=== PATIENT | female | born 1985 ===

== ENCOUNTER 2020-06-02 17:53 | Outpatient (REF) | payer OTHER, SELFPAY | END 2020-06-02 17:54 | disposition home or self-care (01) | LOC: HO.LAB 17:53 | PROVIDERS: Visit Provider Internal Medicine | DX: Z20.828 Contact with and (suspected) exposure to other viral communicable diseases (principal) | CPT/HCPCS: C9803; U0003 ==

== ENCOUNTER → 2020-07-15 13:57 | Outpatient (BNVA) | payer OTHER, SELFPAY | PROVIDERS: PCP Internal Medicine; Visit Provider Nurse Practitioner ==

== ENCOUNTER 2020-07-20 13:42 | Outpatient (REF) | payer OTHER, SELFPAY | END 2020-07-20 13:43 | disposition home or self-care (01) | LOC: HO.LAB 13:42 | PROVIDERS: PCP Internal Medicine; Visit Provider Internal Medicine | DX: Z20.822 Contact with and (suspected) exposure to COVID-19 (principal) | CPT/HCPCS: 36415; C9803; U0003; U0005 ==

== ENCOUNTER → 2020-08-21 13:56 | Outpatient (REF) | payer OTHER, SELFPAY ==
--- NOTE | 2020-08-21 14:15 | ECG_ITS ---
Hook-up date: 2020-08-21 14:14:00 Duration: 47:59:00 Test Indications: PALPITATIONS Medications: 20360903 QRS complexes 61 Ventricular ectopics which represent <1 % of total QRS comp. 25 Supraventricular ectopics which represent <1 % of total QRS comp. * Paced QRS complexs which represent % of total QRS comp. VENTRICULAR ECTOPY 61 Isolated 0 Bigeminal Cycles 0 Couplets 0 Runs 0 Beats in Runs * Beats LONGEST at * BPM at :: -- * Beats FASTEST at * BPM at :: -- SUPRAVENTRICULAR ECTOPY 25 Isolated 0 Couplets 0 Runs 0 Beats in Runs * Beats LONGEST at * BPM at :: -- * Beats FASTEST at * BPM at :: -- HEART RATES 41 MIN at 07:53:43 2020-08-23 71 AVG 134 MAX at 16:42:09 2020-08-21 LONGEST RR 1.6320 secs at 07:53:36 2020-08-23 S-T LEVELS Channel 1 - 128 mm at 14:14:00 2020-08-21 - 128 mm at 14:14:00 2020-08-21 Channel 2 - 128 mm at 14:14:00 2020-08-21 - 128 mm at 14:14:00 2020-08-21 Channel 3 - 128 mm at 03:33:31 -- - 128 mm at 03:33:31 Underlying rhythm is sinus; Average ventricular rate 71/min; range 41-134/min; Rare supraventricular or ventricular ectopy; No sustained arrhythmias; Patient did not report any symptoms in the diary Referred By: Michelle Cruz Overread By: SHARA REED
== END ==
LOC: HO.CARD 13:56
PROVIDERS: PCP Internal Medicine; Visit Provider Internal Medicine
DX: R00.2 Palpitations (principal)
CPT/HCPCS: 93225; 93226

== ENCOUNTER → 2020-09-09 10:05 | Outpatient (REF) | payer OTHER, SELFPAY ==
--- NOTE | 2020-09-09 10:08 | CA_ITS ---
Transthoracic Echocardiogram Patient (Last, First, Middle): Nessa Ricks, Gender: Female Date of : 1985 Age: 35 Procedure Date: 09/09/2020 Procedure Type: Transthoracic Echocardiogram Location: OP Height: 152.4 cm Weight: 68.04 kg BSA: 1.65 m2 Heart Rate: bpm BP: 110 / 62 mmHg Mushroom Sorter Grader: DEBBI Referring MD: Michelle Cruz MD Case Finisher: Matty Cronin MD Symptoms: R06.02 - Shortness of breath Study Quality: Fair ECG Rhythm: Sinus Conclusions: - 1. Normal LV systolic and diastolic function 2. Mild mitral regurgitation 3. Normal RV systolic pressure 4. No pericardial effusion Findings Left Ventricle Normal left ventricular size, thickness, and systolic function. The visually estimated ejection fraction is between 55-60%. Diastolic function is normal for age. Right Ventricle Normal right ventricular cavity size and systolic function. Atria Both atria are normal in size. There is no evidence of interatrial shunt. Aortic Valve The aortic valve structure and function is likely normal. There is no aortic valve stenosis. There is no aortic valve regurgitation. Mitral Valve There is mild anterior and posterior mitral leaflet thickening. There is mild mitral valve regurgitation. There is no mitral valve stenosis. Pulmonic Valve The pulmonic valve was not well visualized. Tricuspid Valve Likely normal tricuspid valve structure and function. There is trace tricuspid valve regurgitation. The right ventricular systolic pressure is normal. The right ventricular systolic pressure is 21 mmHg. Normal right atrial pressure. There is no evidence of pulmonary hypertension. Great Vessels All visible segments of the aorta are normal in size. The pulmonary artery was not well visualized. Venous The inferior vena cava is normal in size and collapses greater than 50% with inspiration. Pericardium/Pleural There is no evidence of pericardial effusion. Prior Study Comparison No prior study available for comparison. Measurements 2D Linear Measurements IVSd: 0.89 0.6-0.9/0.6-1.0 cm LVIDd: 3.93 3.9-5.3/4.2-5.9 cm LVIDd Index: 2.38 2.4-3.2/2.2-3.1 cm/m2 LVIDs: 2.93 2.0-3.6 cm LVPWd: 0.97 0.7-1.1 cm Ao Root: 2.20 2.1-3.5 cm LA Diam: 3.10 2.7-3.8/3.0-4.0 cm LAIDs Index: 1.88 1.5-2.3 cm/m2 LV Mass: 138.01 67-162/88-224 g LV Mass Index: 83.64 43-95/49-115 g/m2 LVOT Diam: 1.90 3.0+(-)1.3 cm 2D Systolic Function EF 4C: 54.40 >55% EF 2C: 59.70 >55% EF BiP: 55.40 >55% Mitral Valve MV VTI: 0.29 MV Pk James: 1.06 MV Mn James: 0.52 MV Pk Grad: 4.00 MV Mn Grad: 1.00 MV Pk E: 0.82 MV PK A: 0.53 MV Decel Time: 153.00 E/A: 1.50 E'Lateral: 11.90 E'Medial: 11.20 E/E' Med: 7.30 E/E' Lat: 6.80 PHT: 45.00 MVA PHT: 4.89 MVA Continuity: 2.34 Decel Alcorn: 5.32 MR VTI: 1.77 MR Alias James: 0.39 Aortic Valve AoV Pk James: 1.55 AoV Pk Grad: 10.00 LVOT LVOT Pk James: 1.06 LVOT Mn James: 0.67 LVOT VTI: 0.24 LVOT Pk Grad: 4.00 LVOT Mn Grad: 2.00 LVOT Diam: 1.90 LVOT Area: 2.84 Diastolic Function MV Pk E: 0.82 MV Pk A: 0.53 E/A: 1.50 E'Medial: 11.20 E/E' Med: 7.30 E' Laterial: 11.90 E/E' Lat: 6.80 Tricuspid Valve TR Pk James: 2.11 TR Pk Grad: 18.00 RA Press: 3.00 RVSP: 21.00 Great Vessels Aorta Ao Root-2D: 2.20 2.0-3.7 cm Ao Asc: 2.40 2.1-3.4 cm Updated in Other Vendor System with Status of Final Matty Cronin MD electronically signed on 09/09/2020 5:02:04 PM with status of Final
== END ==
LOC: HO.CARD 10:05
PROVIDERS: PCP Internal Medicine; Visit Provider Internal Medicine
DX: R06.02 Shortness of breath (principal)
CPT/HCPCS: 93306

== ENCOUNTER 2020-10-28 13:21 | Outpatient (REF) | payer OTHER, SELFPAY ==
[2020-10-28 15:54] LABS: Thyroid Stimulating Hormone 1.39 uIU/mL (0.32-4.0)
[2020-10-29 08:58] LABS: BV Int Neg Control Negative (Negative); BV Int Pos Control Positive (Positive)
[2020-10-29 08:59] LABS: CT PCR NOT DETECTED (Not Detect.); NG PCR NOT DETECTED (Not Detect.)
[2020-10-30 14:52] LABS: Prolactin 9.8 ng/mL
[2020-10-30 17:46] LABS: DHEA Sulfate 51 mcg/dL (23-266)
[2020-10-31 23:07] LABS: HPV 16 RNA NOT DETECTED (NOT DETECTED); HPV mRNA E6/E7 rflx Detected (Not Detected)
[2020-11-01 13:27] LABS: Testosterone, Free 1.2 pg/mL (0.1-6.4); Testosterone, Total 14 ng/dL (2-45)
== END 2020-10-28 13:22 | disposition home or self-care (01) ==
LOC: HO.LAB 13:21
PROVIDERS: PCP Internal Medicine; Visit Provider Advanced Practice Midwife
DX: Z01.419 Encounter for gynecological examination (general) (routine) without abnormal findings (principal); Z11.51 Encounter for screening for human papillomavirus (HPV); Z11.3 Encounter for screening for infections with a predominantly sexual mode of transmission; N89.8 Other specified noninflammatory disorders of vagina; N90.89 Other specified noninflammatory disorders of vulva and perineum; L70.9 Acne, unspecified; N92.6 Irregular menstruation, unspecified
CPT/HCPCS: 36415; 82627; 83498; 84146; 84402; 84403; 84443; 87480; 87491; 87510; 87591; 87624; 87625; 87660; 88142

== ENCOUNTER 2020-11-06 15:02 | Outpatient (REF) | payer OTHER, SELFPAY ==
--- NOTE | ~2020-11-06 | US_ITS ---
EXAMINATION:US pelvic and transvaginal CLINICAL INFORMATION: Reason for Exam N92.6 - Irregular menstruation, unspecified COMPARISON: No priors available. LMP: 11/05/2020 FINDINGS: UTERUS: The uterus is anteverted. Size: 7.1 x 2.8 x 3.8 cm. Uterine mass: There is no uterine mass. Cervix: There are nabothian cysts otherwise Grossly unremarkable. Endometrium: No ultrasound evidence of endometrial lesion. endometrial thickness measures 0.4 cm ADNEXA: Normal Right ovary: Normal in size. Left ovary: Normal in size. Doppler exam: Normal Doppler flow identified in both ovaries. FREE FLUID: Trace amount of free fluid. OTHER FINDINGS: None US/US pelvic and transvaginal IMPRESSION: Normal pelvic ultrasound.
== END 2020-11-06 15:03 | disposition home or self-care (01) ==
LOC: HO.US 15:02
PROVIDERS: Visit Provider Advanced Practice Midwife
DX: N92.6 Irregular menstruation, unspecified (principal)
CPT/HCPCS: 76830; 76856

== ENCOUNTER → 2020-11-18 11:48 | Outpatient (BNVA) | payer OTHER, SELFPAY | PROVIDERS: PCP Internal Medicine; Visit Provider Advanced Practice Midwife ==

== ENCOUNTER 2020-12-08 11:34 | Outpatient (REF) | payer OTHER, SELFPAY ==
--- NOTE | ~2020-12-08 | XR_ITS ---
EXAMINATION: XR KNEE, RIGHT CLINICAL INFORMATION: Pain right knee COMPARISON: None TECHNIQUE: Four views of the right knee. FINDINGS: Bones and soft tissues are normal. No fracture or joint effusion. Alignment is anatomic. Joint spaces are well maintained. No abnormal soft tissue calcification. XR/XR knee RT 3V IMPRESSION: Normal right knee.
[2020-12-08 11:54] LABS: MANUAL DIFF FLAG NO
[2020-12-08 12:00] LABS: Basophils Percent Auto 0.5 % (0-2); Eosinophils Absolute Auto 0.2 X10*3/uL (0.0-0.4); Eosinophils Percent Auto 2.6 % (0-4); Hematocrit 42.1 % (37-47); Hemoglobin 13.4 g/dl (12.0-16.0); Imm Gran Abs Auto 0.01 X10*3/uL (0.00-0.03); Imm Gran Pct Auto 0.2 % (0.0-0.4); Lymphocytes Absolute Auto 2.7 X10*3/uL (1.2-4.9); Mean Corpuscular HGB Conc 31.8 g/dl (31.0-35.0); Mean Corpuscular Hemoglobin 29.6 pg (27.0-33.0); Mean Corpuscular Volume 93.1 fL (80-98); Mean Platelet Volume 12.2 fL (9.4-12.3); Monocytes Absolute Auto 0.5 X10*3/uL (0.1-1.2); Monocytes Percent Auto 7.8 % (2-11); Neutrophils Absolute Auto 2.4 X10*3/uL (2.0-8.3); Neutrophils Percent Auto 41.9 % (45-73); Platelet Count 201 X10*3/uL (160-400); Red Blood Count 4.52 X10*6/uL (4.20-5.50); Red Cell Distribution Width 13.7 % (11.0-16.0); White Blood Count 5.8 X10*3/uL (4.8-10.8)
[2020-12-08 12:23] LABS: Alanine Aminotransferase 31 U/L (0-31); Albumin Level 4.2 g/dL (3.5-5.0); Alkaline Phosphatase 82 U/L (39-117); Anion Gap 11 (12-20); Aspartate Amino Transferase 26 U/L (5-31); Bilirubin Total 0.4 mg/dL (0.0-1.0); Blood Urea Nitrogen 13 mg/dL (9-16); Calcium 9.8 mg/dL (8.4-10.2); Carbon Dioxide 29 mmol/L (22-29); Chloride 106 mmol/L (96-108); Cholesterol 195 mg/dL; Estimated Glomerular Filt Rate > 60; Glucose Fasting 94 mg/dL (60-99); HDL Cholesterol 47 mg/dL; LDL Cholesterol Calculated 96 mg/dl; Potassium 4.5 mmol/L (3.3-5.1); Sodium 141 mmol/L (135-145); Total Protein 6.8 g/dL (6.5-8.0); Triglycerides 264 mg/dL
[2020-12-12 19:32] LABS: Vitamin D 25-OH, D2 <4 ng/mL; Vitamin D 25-OH, D3 38 ng/mL; Vitamin D 25-OH, Total 38 ng/mL (30-100)
== END 2020-12-08 11:35 | disposition home or self-care (01) ==
LOC: HO.XRAY 11:34
PROVIDERS: PCP Internal Medicine; Visit Provider Internal Medicine
DX: M25.561 Pain in right knee (principal); E78.5 Hyperlipidemia, unspecified; E55.9 Vitamin D deficiency, unspecified; D64.9 Anemia, unspecified
CPT/HCPCS: 36415; 73562; 80053; 80061; 82306; 85025

== ENCOUNTER → 2021-01-07 14:04 | Outpatient (BNVA) | payer OTHER, SELFPAY | PROVIDERS: Referring Provider Internal Medicine; Visit Provider Nurse Practitioner | DX: R14.0 Abdominal distension (gaseous) (principal); K21.9 Gastro-esophageal reflux disease without esophagitis | CPT/HCPCS: 99212 ==

== ENCOUNTER 2021-04-19 15:35 | Outpatient (REF) | payer OTHER, SELFPAY | END 2021-04-19 15:36 | disposition home or self-care (01) | LOC: HO.LAB 15:35 | PROVIDERS: PCP Internal Medicine; Visit Provider Internal Medicine | DX: Z20.822 Contact with and (suspected) exposure to COVID-19 (principal) | CPT/HCPCS: C9803; U0003; U0005 ==

== ENCOUNTER → 2021-07-13 13:01 | Outpatient (BNVA) | payer OTHER, SELFPAY | PROVIDERS: PCP Internal Medicine; Visit Provider Nurse Practitioner | DX: K21.9 Gastro-esophageal reflux disease without esophagitis (principal); R14.0 Abdominal distension (gaseous) | CPT/HCPCS: 99212 ==

== ENCOUNTER → 2021-10-01 12:42 | Outpatient (REF) | payer OTHER, SELFPAY ==
--- NOTE | 2021-10-01 12:44 | ECG_ITS ---
Hook-up date: 2021-10-01 11:56:00 Duration: 47:59:00 Test Indications: TACHYCARDIA Medications: [id number] QRS complexes 236 Ventricular ectopics which represent <1 % of total QRS comp. 28 Supraventricular ectopics which represent <1 % of total QRS comp. * Paced QRS complexs which represent % of total QRS comp. VENTRICULAR ECTOPY 236 Isolated 0 Bigeminal Cycles 0 Couplets 0 Runs 0 Beats in Runs * Beats LONGEST at * BPM at :: -- * Beats FASTEST at * BPM at :: -- SUPRAVENTRICULAR ECTOPY 28 Isolated 0 Couplets 0 Runs 0 Beats in Runs * Beats LONGEST at * BPM at :: -- * Beats FASTEST at * BPM at :: -- HEART RATES 45 MIN at 02:37:35 2021-10-03 79 AVG 127 MAX at 06:42:53 2021-10-03 LONGEST RR 1.4320 secs at 02:37:35 2021-10-03 S-T LEVELS Channel 1 - 128 mm at 11:56:00 2021-10-01 - 128 mm at 11:56:00 2021-10-01 Channel 2 - 128 mm at 11:56:00 2021-10-01 - 128 mm at 11:56:00 2021-10-01 Channel 3 - 128 mm at 03:11:51 -- - 128 mm at 03:11:51 Underlying rhyhm is sinus; Average ventricular rate 79/min; range 45-127/min; Rare supraventricular and ventricular ectopy; No sustained arrhythmias; Shortness of breath, chest tightness described in diary, but no significant arrhythmias to account for this. Referred By: Michelle Cruz Overread By: SHARA REED
[2021-10-01 13:09] LABS: MANUAL DIFF FLAG NO
[2021-10-01 13:22] LABS: Basophils Percent Auto 0.5 % (0-2); Eosinophils Absolute Auto 0.1 X10*3/uL (0.0-0.4); Eosinophils Percent Auto 1.4 % (0-4); Hematocrit 40.6 % (37.0-47.0); Hemoglobin 12.9 g/dl (12.0-16.0); Imm Gran Abs Auto 0.02 X10*3/uL (0.00-0.03); Imm Gran Pct Auto 0.3 % (0.0-0.4); Lymphocytes Absolute Auto 2.4 X10*3/uL (1.2-4.9); Lymphocytes Percent Auto 33.1 % (20-40); Mean Corpuscular HGB Conc 31.8 g/dl (31.0-35.0); Mean Corpuscular Hemoglobin 29.7 pg (27.0-33.0); Mean Corpuscular Volume 93.3 fL (80.0-98.0); Mean Platelet Volume 12.1 fL (9.4-12.3); Monocytes Absolute Auto 0.5 X10*3/uL (0.1-1.2); Neutrophils Absolute Auto 4.2 x10*3/uL (2.0-8.3); Neutrophils Percent Auto 57.7 % (45-73); Platelet Count 204 X10*3/uL (160-400); Red Blood Count 4.35 X10*6/uL (4.20-5.50); Red Cell Distribution Width 13.8 % (11.0-16.0); White Blood Count 7.3 X10*3/uL (4.8-10.8)
[2021-10-01 14:20] LABS: Alanine Aminotransferase 47 U/L (0-31); Albumin Level 4.1 g/dL (3.5-5.0); Alkaline Phosphatase 89 U/L (39-117); Anion Gap 13 (12-20); Aspartate Amino Transferase 35 U/L (5-31); Bilirubin Total 0.5 mg/dL (0.0-1.0); Blood Urea Nitrogen 9 mg/dL (9-16); Calcium 9.8 mg/dL (8.4-10.2); Carbon Dioxide 28 mmol/L (22-29); Chloride 105 mmol/L (96-108); Cholesterol 191 mg/dL; Estimated Glomerular Filt Rate > 60; Glucose Fasting 76 mg/dL (60-99); HDL Cholesterol 51 mg/dL; LDL Cholesterol Calculated 119 mg/dl; Potassium 3.8 mmol/L (3.3-5.1); Sodium 142 mmol/L (135-145); Total Protein 6.6 g/dL (6.5-8.0); Triglycerides 105 mg/dL
[2021-10-01 14:25] LABS: Thyroid Stimulating Hormone 1.31 uIU/mL (0.32-4.0); Vitamin D 25-OH Total 27.3 ng/mL (>30)
== END ==
LOC: HO.CARD 12:42
PROVIDERS: Visit Provider Internal Medicine
DX: R00.0 Tachycardia, unspecified (principal); E78.5 Hyperlipidemia, unspecified; R53.82 Chronic fatigue, unspecified
CPT/HCPCS: 36415; 80053; 80061; 82306; 84443; 85025; 93225; 93226

== ENCOUNTER 2021-10-07 22:30 | Observation (INO) | payer OTHER, SELFPAY ==
--- NOTE | 2021-10-07 | ECG_ITS ---
Test Reason : CHEST PAIN/PALPITATIONS Blood Pressure : / mmHG Vent. Rate : 063 BPM Atrial Rate : 063 BPM P-R Int : 160 ms QRS Dur : 126 ms QT Int : 436 ms P-R-T Axes : 054 -13 035 degrees QTc Int : 446 ms Normal sinus rhythm Non-specific intra-ventricular conduction block Minimal voltage criteria for LVH, may be normal variant ( Contreras product ) Cannot rule out Septal infarct (cited on or before 07-OCT-2021) T wave abnormality, consider anterior ischemia Abnormal ECG When compared with ECG of 30-JUL-2015 16:45, QRS duration has increased Referred By: Generic ED Physician Electronically Signed By:SHIRIN CLEMENT MD
[2021-10-07 22:42] VITALS: BP 129/76; PULSE 66; RESP 14; TEMP 36.9; O2SAT 98; BMI 28.9
[2021-10-07 22:49] LABS: MANUAL DIFF FLAG NO
[2021-10-07 22:50] LABS: Basophils Percent Auto 0.5 % (0-2); Eosinophils Absolute Auto 0.1 X10*3/uL (0.0-0.4); Hematocrit 39.5 % (37.0-47.0); Hemoglobin 12.6 g/dl (12.0-16.0); Lymphocytes Absolute Auto 2.9 X10*3/uL (1.2-4.9); Lymphocytes Percent Auto 45.2 % (20-40); Mean Corpuscular HGB Conc 31.9 g/dl (31.0-35.0); Mean Corpuscular Hemoglobin 29.4 pg (27.0-33.0); Mean Corpuscular Volume 92.3 fL (80.0-98.0); Mean Platelet Volume 12.4 fL (9.4-12.3); Monocytes Absolute Auto 0.5 X10*3/uL (0.1-1.2); Monocytes Percent Auto 8.3 % (2-11); Neutrophils Absolute Auto 2.9 x10*3/uL (2.0-8.3); Platelet Count 207 X10*3/uL (160-400); Red Blood Count 4.28 X10*6/uL (4.20-5.50); Red Cell Distribution Width 14.1 % (11.0-16.0); White Blood Count 6.5 X10*3/uL (4.8-10.8)
--- NOTE | 2021-10-07 23:01 | PC.NURSE ---
Assumed care of pt Pt c/o midsternal chest discomfort. Per pt, not really pain just uncmfortable. Started today after going home from work. Per pt, occurred again yesterday after hiking but went away. Non-radiating, non-reproducible Denies any injury to area or cough or fever Pt states was seen by PCP for same complaint and had holter monitor recently. Unknown results Will continue to monitor
[2021-10-07 23:12] LABS: Alanine Aminotransferase 43 U/L (0-31); Albumin Level 3.8 g/dL (3.5-5.0); Alkaline Phosphatase 77 U/L (39-117); Anion Gap 13 (12-20); Aspartate Amino Transferase 37 U/L (5-31); Bilirubin Total 0.3 mg/dL (0.0-1.0); Blood Urea Nitrogen 9 mg/dL (9-16); Calcium 9.4 mg/dL (8.4-10.2); Carbon Dioxide 24 mmol/L (22-29); Chloride 111 mmol/L (96-108); Creatinine Clr Calc Pharmacy 94.9; Estimated Glomerular Filt Rate > 60; Glucose Random 115 mg/dL (60-115); Potassium 3.7 mmol/L (3.3-5.1); Sodium 144 mmol/L (135-145); Total Protein 6.4 g/dL (6.5-8.0)
[2021-10-07 23:18] LABS: B Type Natriuretic Peptide 59 pg/mL (<100); Troponin-I High Sensitivity 147.2 ng/L (<3.5-17.0)
--- NOTE | 2021-10-07 23:18 | ED_ITS ---
HPI - Chest Pain General Chief Complaint: Chest Pain Stated Complaint: chest pressure,SOB Time Seen by Provider: 10/07/21 23:17 Source: patient Mode of arrival: ambulatory Limitations: no limitations History of Present Illness HPI narrative: Patient history of episodes of palpitation off and on for last 1 year had Holter monitoring and echo done on 10/01 echo was normal, Holter monitoring showed frequent PVCs without any runs of V-tach patient not seen not seen any mold repair technician yet her thyroid test was normal. Today around 05:00 o'clock patient when came home from work noticed palpitation episode which lasted about half an hour assist with shortness of breath and chest heaviness this time this palpitation was longer than in the past patient still complaining of mild dull chest pain no radiation of the pain no leg swelling or pain Related Data Previous Rx's Medication Instructions Recorded calcium carbonate 300 mg (750 mg) 300 mg PO TID #90 tab 07/13/21 chewable tablet (Tums E-X) simethicone 180 mg capsule (Gas 180 mg PO QID PRN #90 cap 07/13/21 Relief (simethicone)) Allergies Allergy/AdvReac Type Severity Reaction Status Date / Time No Known Allergies Allergy Verified 09/09/21 15:48 Review of Systems Review of Systems: Yes all other systems are reviewed and are negative [facility] Past Medical History Medical History Chronic fatigue Dyslipidemia Palpitations Physical exam Right knee pain Shortness of breath Tachycardia Surgical History History of loop electrical excision procedure (LEEP) Family History Family History Father No problems noted. Mother Kidney disease High blood pressure Sister Parkinsons disease Muscular dystrophy Maternal Grandfather Cancer Maternal Aunt Diabetes Maternal Grandmother Kidney disease Social History Social History Household Members: Family Housing: Apartment Alcohol intake: current Alcohol intake frequency: holidays/special occasions only Alcohol type: wine and hard liquor Patient Tobacco Use Status: Never used Tobacco e-Cigarette/Vaping Use: Never Used Second Hand Smoke Exposure: No Advance Directives: No Patient : No service: No Current occupational status: unemployed Gender identity: Female Cognitive needs: No Hearing needs: No Vision needs: No Physical Exam Vital Signs: Vital Signs: Last Vital Signs Temp 98.4 F 10/07/21 22:42 Pulse 66 10/08/21 02:37 Resp 13 10/08/21 02:37 BP 98/56 L 10/08/21 02:37 Pulse Ox 98 10/08/21 02:37 BMI result Body Mass Index 28.9 Appearance: Alert. Oriented X3. No acute distress. Eyes: No pallor or icterus ENT: Pharynx normal. Oral Mucosa moist Neck: Normal inspection. Neck supple. CVS: Normal heart rate and rhythm. Pulses normal. Respiratory: No respiratory distress. Equal air entry bilateral, no wh eezing/rales/rhonchi Abdomen: Soft and nontender. Bowel sounds are present, no mass palpable, no CVA tenderness Skin: Skin warm and dry. Normal skin color. Normal skin turgor. Extremities: No lower extremity edema. No calf tenderness Neuro: Oriented X 3. No motor deficit. MDM - Chest Pain MDM Narrative Medical decision making narrative: Patient with elevated troponin with episode of palpitation lasted longer than usual with chest discomfort will admit patient to rule out ACS and to be seen by mold repair technician Medical Records Data Attestation: I reviewed the patient's medical records. Lab Data Attestation: I reviewed the patient's lab results. Result diagrams: 10/07/21 22:43 10/07/21 22:43 Labs: Lab Results 10/07/21 10/07/21 10/07/21 Range/Units 22:43 22:43 22:43 WBC 6.5 (4.8-10.8) X10*3/uL RBC 4.28 (4.20-5.50) X10*6/uL Hgb 12.6 (12.0-16.0) g/dl Hct 39.5 (37.0-47.0) % MCV 92.3 (80.0-98.0) fL MCH 29.4 (27.0-33.0) pg MCHC 31.9 (31.0-35.0) g/dl RDW 14.1 (11.0-16.0) % Plt Count 207 (160-400) X10*3/uL MPV 12.4 H (9.4-12.3) fL Immature Gran % (Auto) 0.0 (0.0-0.4) % Neut % (Auto) 44.0 L (45-73) % Lymph % (Auto) 45.2 H (20-40) % Eddy % (Auto) 8.3 (2-11) % Eos % (Auto) 2.0 (0-4) % Baso % (Auto) 0.5 (0-2) % Lymph # (Auto) 2.9 (1.2-4.9) X10*3/uL [place] # (Auto) 0.5 (0.1-1.2) X10*3/uL Eos # (Auto) 0.1 (0.0-0.4) X10*3/uL Baso # (Auto) 0.0 (0.0-0.2) X10*3/uL Abs Immat Gran (auto) 0.00 (0.00-0.03) X10*3/uL Absolute Neuts (auto) 2.9 (2.0-8.3) x10*3/uL Absolute Nucleated RBC 0.000 (0.0-0.012) X10*3/uL Nucleated RBC % (auto) 0.0 (0.0-0.2) /100WBC PT (9.9-13.0) SEC INR (0.9-1.1) APTT (24.1-38.0) SEC D-Dimer High Sensitivty NG/ML Sodium 144 (135-145) mmol/L Potassium 3.7 (3.3-5.1) mmol/L Chloride 111 H (96-108) mmol/L Carbon Dioxide 24 (22-29) mmol/L Anion Gap 13 (12-20) BUN 9 (9-16) mg/dL Creatinine 0.70 (0.5-1.4) mg/dL Estim Creat Clear Calc 94.9 Estimated GFR > 60 Random Glucose 115 (60-115) mg/dL Calcium 9.4 (8.4-10.2) mg/dL Total Bilirubin 0.3 (0.0-1.0) mg/dL AST 37 H (5-31) U/L ALT 43 H (0-31) U/L Alkaline Phosphatase 77 (39-117) U/L Troponin I High Sens 147.2 H* (<3.5-17.0) ng/L B-Natriuretic Peptide 59 (<100) pg/mL Total Protein 6.4 L (6.5-8.0) g/dL Albumin 3.8 (3.5-5.0) g/dL COVID-19 (LAURYN) (Negative) COVID-19 Clin Com 10/07/21 10/07/21 10/08/21 Range/Units 23:35 23:35 00:58 WBC (4.8-10.8) X10*3/uL RBC (4.20-5.50) X10*6/uL Hgb (12.0-16.0) g/dl Hct (37.0-47.0) % MCV (80.0-98.0) fL MCH (27.0-33.0) pg MCHC (31.0-35.0) g/dl RDW (11.0-16.0) % Plt Count (160-400) X10*3/uL MPV (9.4-12.3) fL Immature Gran % (Auto) (0.0-0.4) % Neut % (Auto) (45-73) % Lymph % (Auto) (20-40) % Eddy % (Auto) (2-11) % Eos % (Auto) (0-4) % Baso % (Auto) (0-2) % Lymph # (Auto) (1.2-4.9) X10*3/uL Eddy # (Auto) (0.1-1.2) X10*3/uL Eos # (Auto) (0.0-0.4) X10*3/uL Baso # (Auto) (0.0-0.2) X10*3/uL Abs Immat Gran (auto) (0.00-0.03) X10*3/uL Absolute Neuts (auto) (2.0-8.3) x10*3/uL Absolute Nucleated RBC (0.0-0.012) X10*3/uL Nucleated RBC % (auto) (0.0-0.2) /100WBC PT 11.0 (9.9-13.0) SEC INR 1.0 (0.9-1.1) APTT 33.4 (24.1-38.0) SEC D-Dimer High Sensitivty < 150 NG/ML Sodium (135-145) mmol/L Potassium (3.3-5.1) mmol/L Chloride (96-108) mmol/L Carbon Dioxide (22-29) mmol/L Anion Gap (12-20) BUN (9-16) mg/dL Creatinine (0.5-1.4) mg/dL Estim Creat Clear Calc Estimated GFR Random Glucose (60-115) mg/dL Calcium (8.4-10.2) mg/dL Total Bilirubin (0.0-1.0) mg/dL AST (5-31) U/L ALT (0-31) U/L Alkaline Phosphatase (39-117) U/L Troponin I High Sens 126.8 H* (<3.5-17.0) ng/L B-Natriuretic Peptide (<100) pg/mL Total Protein (6.5-8.0) g/dL Albumin (3.5-5.0) g/dL COVID-19 (LAURYN) Negative (Negative) COVID-19 Clin Com See Note ECG Data ECG #1: Attestation: I personally reviewed and interpreted this ECG as follows: Interpretation: Normal sinus rhythm heart rate 63 beats per minute LVH poor progression of R- waves in anterior leads no acute ST elevation no acute ischemic Discharge Plan Discharge Clinical Impression: Heart palpitations, Non-ST elevation (NSTEMI) myocardial infarction Patient Disposition: Admitted As Inpatient
[2021-10-07 23:42] VITALS: BP 124/74; PULSE 62
[2021-10-07] MEDS: Aspirin 81 MG TAB.CHEW 162 MG PO (23:42)
[2021-10-07] MEDS: Nitroglycerin 2 % Oint 1 GM Packet 0.5 INCH TRANSDERMA (23:42)
[2021-10-07 23:54] LABS: Partial Thromboplastin Time 33.4 SEC (24.1-38.0)
--- NOTE | 2021-10-08 | CA_ITS ---
Acquisition Time: 2021-10-08 11:14:17 Total Exercise Time: 00:08:57 Test Indications: PALPITATIONS CHEST PRESSURE Medications: Protocol: EVELIA Max HR: 157 BPM 85% of Pred: 184 BPM Max BP: 120/070 mmHG Max Work Load: 7.0 METS Exercise stress test with exercise 6 min 3 sec of Evelia protocol, ( not 8 min 57 sec as listed), with mild sob, no chest discomfort, with report she can feel her heart going fast but not like her prior palpitations, without arrythma, with normotensive response to exercise, with EKG at baseline showing nonspecific IVCD then once heart rate reached about 150, there was further QRS widening, appearing to be rate related LBBB, with nondiagnostic EKGs for ischemia. In recovery the QRS width returned to baseline. Test reviewed with Dr Cronin. Referred By: Matty Cronin Overread By: EVE BURR
[2021-10-08 00:01] LABS: D Dimer High Sensitivity < 150 NG/ML
[2021-10-08 00:42] VITALS: BP 107/68; PULSE 70; RESP 15; O2SAT 98
[2021-10-08 01:22] LABS: Troponin-I High Sensitivity 126.8 ng/L (<3.5-17.0)
--- NOTE | 2021-10-08 01:34 | P.HPHOSP_ITS ---
History of Present Illness Date of Service: 10/08/21 Chief Complaint: Palpitations, chest pressure This is a 36-year-old female with past medical history of chronic fatigue, dyslipidemia, history of palpitations and tachycardia who into the hospital with complaints of chest pressure as well as palpitations. Patient reports that for the past 1 year she has had intermittent palpitations, she had workup that inclu ded loop recorder, echocardiogram, and TSH which were all negative but showed PVCs. she reports that today she developed significant palpitations and swell as chest discomfort that felt like pressure in the midsternal region nonradiating, this lasted about 30 minutes, occurred at rest, and spontaneously resolved. She reports feeling short of breath during this episode. She denies any dizziness, no headache, no change in vision, no abdominal pain nausea or vomiting, no diarrhea constipation, no urinary symptoms and no lower extremity edema. On arrival to the ED patient hemodynamically stable with no significant abnormal vital, she was given a nitro paste which helped with her chest pressure CBC unremarkable, BMP shows no significant abnormality, troponin initially was found to be 147, decreased to 126 on repeat, EKG shows T-wave inversions in V1, V2, present on EKG from 2016 Holter report from September 2021 showed underlying rhythm is sinus, rare supraventricular and ventricular ectopy, no sustained arrhythmias Patient will be admitted for observation and cardiology evaluation Review of Systems Review of Systems: Yes all other systems are reviewed and are negative [facility] Medical History Chronic fatigue Dyslipidemia Palpitations Physical exam Right knee pain Shortness of breath Tachycardia Family History Father No problems noted. Mother Kidney disease High blood pressure Sister Parkinsons disease Muscular dystrophy Maternal Grandfather Cancer Maternal Aunt Diabetes Maternal Grandmother Kidney disease Surgical History History of loop electrical excision procedure (LEEP) Social History Household Members: Family Housing: Apartment Alcohol intake: current Alcohol intake frequency: holidays/special occasions only Alcohol type: wine and hard liquor Patient Tobacco Use Status: Never used Tobacco e-Cigarette/Vaping Use: Never Used Second Hand Smoke Exposure: No Advance Directives: No Patient : No service: No Current occupational status: unemployed Gender identity: Female Cognitive needs: No Hearing needs: No Vision needs: No Meds Allergies Allergy/AdvReac Type Severity Reaction Status Date / Time No Known Allergies Allergy Verified 09/09/21 15:48 Physical Exam Vital Signs and Narrative: Vital Signs: Last Vital Signs Temp 98.4 F 10/07/21 22:42 Pulse 70 10/08/21 00:42 Resp 15 10/08/21 00:42 BP 107/68 10/08/21 00:42 Pulse Ox 98 10/08/21 00:42 BMI result Body Mass Index 28.9 Const: Other: Appears anxious General: cooperative and no acute distress Orientation/consciousness: patient oriented x3 Eyes: General: appearance normal, both eyes and all related structures Pupils: Equal, round and reactive pupils present Resp: Effort & Inspection: normal respiratory effort Auscultation: clear to auscultation bilaterally Cardio: Rate: regular rate Rhythm: regular rhythm GI: Palpation (GI): Soft to palpation Auscultation: normal bowel sounds Skin: General skin exam: no rashes or lesions noted Neuro: General: patient oriented x3 Cranial nerves: Yes Equal, round and reactive pupils present Cognition (Neuro): normal cognition Extrem: General: Yes normal to inspection and Yes no pedal edema Results Labs CBC and Chem 7: 10/07/21 22:43 10/07/21 22:43 Labs: Laboratory Results - last 24 hr 10/07/21 10/07/21 10/07/21 22:43 22:43 22:43 MCV 92.3 MCH 29.4 MCHC 31.9 RDW 14.1 Plt Count 207 MPV 12.4 H Immature Gran % (Auto) 0.0 Neut % (Auto) 44.0 L Lymph % (Auto) 45.2 H [place] % (Auto) 8.3 Eos % (Auto) 2.0 Baso % (Auto) 0.5 Lymph # (Auto) 2.9 [place] # (Auto) 0.5 Eos # (Auto) 0.1 Baso # (Auto) 0.0 Abs Immat Gran (auto) 0.00 Absolute Neuts (auto) 2.9 Absolute Nucleated RBC 0.000 Nucleated RBC % (auto) 0.0 PT INR APTT D-Dimer High Sensitivty Anion Gap 13 Estim Creat Clear Calc 94.9 Estimated GFR > 60 Random Glucose 115 Calcium 9.4 Total Bilirubin 0.3 AST 37 H ALT 43 H Alkaline Phosphatase 77 Troponin I High Sens 147.2 H* B-Natriuretic Peptide 59 Total Protein 6.4 L Albumin 3.8 10/07/21 10/08/21 23:35 00:58 MCV MCH MCHC RDW Plt Count MPV Immature Gran % (Auto) Neut % (Auto) Lymph % (Auto) [place] % (Auto) Eos % (Auto) Baso % (Auto) Lymph # (Auto) [place] # (Auto) Eos # (Auto) Baso # (Auto) Abs Immat Gran (auto) Absolute Neuts (auto) Absolute Nucleated RBC Nucleated RBC % (auto) PT 11.0 INR 1.0 APTT 33.4 D-Dimer High Sensitivty < 150 Anion Gap Estim Creat Clear Calc Estimated GFR Random Glucose Calcium Total Bilirubin AST ALT Alkaline Phosphatase Troponin I High Sens 126.8 H* B-Natriuretic Peptide Total Protein Albumin Assessment and Plan (1) Heart palpitations: Status: Acute (2) Elevated troponin: Status: Acute Plan 36-year-old female with past medical history as mentioned including palpitations, GERD, as well as hyperlipidemia who presents to the hospital with complaints of palpitations as well as chest pressure found to have elevated troponin # elevated troponin - likely secondary to tachycardia/palpitations - EKGs shows T-wave inversions in V1 and V2 but these were present and EKG of 2016 - her recent workup that includes echo were normal - will consult Cardiology given the significant troponin elevation as well as symptoms # palpitations - patient had a recent 48 hour Holter monitor that showed PVCs with no other arrhythmias - TSH has been normal in the past - Cardiology for further recommendation DVT prophylaxis: Early ambulation Quality Stroke Does the patient have a stroke diagnosis?: No VTE Prior VTE?: No VTE Risk Level:: Medical - moderate - high VTE Device Contraindication: Treatment Not Indicated VTE Drug Contraindication: Treatment Not Indicated
[2021-10-08 01:47] LABS: COVID-19 Test Negative (Negative); IDNOW Serial# 55D5AD1C
[2021-10-08 02:37] VITALS: BP 98/56; PULSE 66; RESP 13; O2SAT 98
--- NOTE | 2021-10-08 04:01 | PC.NURSE ---
Pt resting on stretcher with eyes closed Breathing even and unlabored NAD Will continue to monitor
[2021-10-08 06:09] VITALS: BP 97/55; PULSE 77; RESP 18; O2SAT 98
[2021-10-08 06:20] LABS: MANUAL DIFF FLAG NO
[2021-10-08 06:26] LABS: Basophils Percent Auto 0.6 % (0-2); Eosinophils Absolute Auto 0.1 X10*3/uL (0.0-0.4); Eosinophils Percent Auto 2.5 % (0-4); Hematocrit 39.9 % (37.0-47.0); Hemoglobin 12.5 g/dl (12.0-16.0); Imm Gran Abs Auto 0.01 X10*3/uL (0.00-0.03); Imm Gran Pct Auto 0.2 % (0.0-0.4); Lymphocytes Absolute Auto 2.8 X10*3/uL (1.2-4.9); Lymphocytes Percent Auto 53.3 % (20-40); Mean Corpuscular HGB Conc 31.3 g/dl (31.0-35.0); Mean Corpuscular Hemoglobin 29.4 pg (27.0-33.0); Mean Corpuscular Volume 93.9 fL (80.0-98.0); Mean Platelet Volume 12.6 fL (9.4-12.3); Monocytes Absolute Auto 0.4 X10*3/uL (0.1-1.2); Monocytes Percent Auto 8.3 % (2-11); Neutrophils Absolute Auto 1.8 x10*3/uL (2.0-8.3); Neutrophils Percent Auto 35.1 % (45-73); Platelet Count 184 X10*3/uL (160-400); Red Blood Count 4.25 X10*6/uL (4.20-5.50); White Blood Count 5.2 X10*3/uL (4.8-10.8)
[2021-10-08 06:36] LABS: Anion Gap 12 (12-20); Blood Urea Nitrogen 8 mg/dL (9-16); Calcium 9.1 mg/dL (8.4-10.2); Carbon Dioxide 23 mmol/L (22-29); Chloride 113 mmol/L (96-108); Creatinine Clr Calc Pharmacy 99.2; Estimated Glomerular Filt Rate > 60; Glucose Random 93 mg/dL (60-115); Potassium 3.8 mmol/L (3.3-5.1); Sodium 144 mmol/L (135-145)
[2021-10-08 07:31] VITALS: BP 106/64; PULSE 66; RESP 15; TEMP 36.4; O2SAT 99
--- NOTE | 2021-10-08 07:53 | PHA.MEDREC ---
Pharmacy Consult ? Medication Reconciliation Pharmacy has completed the medication reconciliation. Spoke with patient in the ED.
--- NOTE | 2021-10-08 08:32 | CA_ITS ---
Transthoracic Echocardiogram Patient (Last, First, Middle): Nessa Ricks, Gender: Female Date of : 1985 Age: 36 Procedure Date: 10/08/2021 Procedure Type: Transthoracic Echocardiogram Location: ER Height: 152.4 cm Weight: 67.13 kg BSA: 1.64 m2 Heart Rate: bpm BP: 120 / 67 mmHg Adobe Layer Helper: Referring MD: Matty Cronin MD Symptoms: Elevated troponins, to evaluate RWMA Study Quality: Adequate ECG Rhythm: Sinus Conclusions: - Normal LV systolic function without significant regional wall motion abnormality Findings Left Ventricle Normal left ventricular size, thickness, and systolic function. The visually estimated ejection fraction is between 55-60%. Spectral Doppler is indicative of a normal filling pattern. Peak GLS is -20.3%, within normal limits Pericardium/Pleural There is no evidence of pericardial effusion. Measurements 2D Linear Measurements IVSd: 0.99 0.6-0.9/0.6-1.0 cm LVIDd: 3.91 3.9-5.3/4.2-5.9 cm LVIDd Index: 2.38 2.4-3.2/2.2-3.1 cm/m2 LVIDs: 2.76 2.0-3.6 cm LVPWd: 0.88 0.7-1.1 cm LV Mass: 139.07 67-162/88-224 g LV Mass Index: 84.80 43-95/49-115 g/m2 2D Systolic Function EF 4C: 49.60 >55% EF 2C: 59.60 >55% EF BiP: 55.30 >55% Updated in Other Vendor System with Status of Final Matty Cronin MD electronically signed on 10/08/2021 12:46:37 PM with status of Final
[2021-10-08 09:39] VITALS: BP 120/65; PULSE 63; RESP 18; TEMP 37; O2SAT 96
--- NOTE | 2021-10-08 09:55 | P.CONCA_ITS ---
History of Present Illness History of Present Illness Date of Service: 10/08/21 Requesting physician: Emeka Spence Consult reason: chest pain and other (Palpitations) Chief complaint: ACS r/o Narrative: I was consulted to see Nessa in cardiology consultation today. She is a pleasant young woman who present to the hospital yesterday with rapid heart rate. She says she was feeling fine yesterday when she came back from work and was relaxing when she suddenly started noticing rapid heart rate. This was immediately associated shortness of breath and chest pressure. She felt quite distressed yesterday and the palpitation went on for about 30 minutes. She then eventually decided to come to the emergency room because the symptoms are not abating. She was driven to the emergency room. She tried to take her own carotid pulse and thinks that was very rapid and regular and had skipped heartbeats. However this is unclear. At time she came to the emergency room a palpitation with subside but she continued to have pressure in her chest. The 1st EKG shows sinus rhythm with IVCD. Her troponins were elevated and subsequently down trended. She was admitted for observation because of elevated troponins and chest pain. She had workup for these symptoms of palpitations last year with Holter monitor showing rare ectopy. She had echocardiogram showed normal cardiac structure and function. She says she has had these palpitations for many years but usually short lasting and is associated with shortness of breath but never chest pressure. In the past she has been labeled as having panic attacks. She is very emotional about this. He has no major other cardiovascular risk factors. Review of Systems Constitutional: Constitutional: Reports no additional constitutional complaints Eyes: Eyes: Reports no additional eye complaints Cardiovascular: Cardiovascular: Reports chest pain, Reports palpitations and Reports dyspnea Respiratory: Respiratory: Reports no additional respiratory complaints and Reports dyspnea Gastrointestinal: Gastrointestinal: Reports no additional gastrointestinal complaints Genitourinary: Genitourinary: Reports no additional female genitourinary complaints Musculoskeletal: Musculoskeletal: Reports no additional musculoskeletal complaints Integumentary/Breasts: Skin/Breast: Reports system reviewed and no additional complaints, except as docu Neurologic: Reports system reviewed and no additional complaints, except as documented Psychiatric: Psychiatric: Reports no additional psychiatric complaints Endocrine: Endocrine: Reports no additional endocrine complaints and Reports palpitations Hematologic/Lymphatic: Hematologic/Lymphatic: Reports no additional hematologic/lymphatic complaints Allergic/Immunologic: Allergic/Immunologic: Reports no additional allergi c/immunologic complaints [facility] Past Medical History Medical History Chronic fatigue Dyslipidemia Palpitations Physical exam Right knee pain Shortness of breath Tachycardia Family History Family History Father No problems noted. Mother Kidney disease High blood pressure Sister Parkinsons disease Muscular dystrophy Maternal Grandfather Cancer Maternal Aunt Diabetes Maternal Grandmother Kidney disease Surgical History Surgical History History of loop electrical excision procedure (LEEP) Social History Social History Household Members: Family Housing: Apartment Alcohol intake: current Alcohol intake frequency: holidays/special occasions only Alcohol type: wine and hard liquor Patient Tobacco Use Status: Never used Tobacco e-Cigarette/Vaping Use: Never Used Second Hand Smoke Exposure: No Advance Directives: No Patient : No service: No Current occupational status: unemployed Gender identity: Female Cognitive needs: No Hearing needs: No Vision needs: No Meds Allergies Allergy/AdvReac Type Severity Reaction Status Date / Time No Known Allergies Allergy Verified 09/09/21 15:48 Active Medications: Current Medications Acetaminophen (Acetaminophen 325 Mg Tablet) 650 mg PO Q6H PRN PRN Reason: Pain, Mild (Pain Scale 1-3) Ondansetron HCl (Ondansetron Hcl 4 Mg/2 Ml Vial) 4 mg IVPUSH Q8H PRN PRN Reason: Nausea and Vomiting Sodium Chloride (0.9 % Sodium Chloride Flush 3 Ml Syringe) 3 ml IVFLUSH [facility] Last Admin: 10/08/21 09:29 Dose: Not Given Documented by: Home Medications Medication Instructions Recorded Confirmed Last Taken Type apple cider vinegar 300 mg tablet 300 mg PO DAILY 10/08/21 10/08/21 10/07/21 History calcium carbonate 300 mg (750 mg) 300 mg PO TID PRN 10/08/21 10/08/21 Unknown History chewable tablet (Tums E-X) multivitamin 1 tab PO DAILY 10/08/21 10/08/21 10/07/21 History simethicone 180 mg capsule (Gas 180 mg PO QID PRN 10/08/21 10/08/21 Unknown History Relief (simethicone)) Physical Exam Vital Signs: Vital Signs: Last Vital Signs Temp 98.6 F 10/08/21 09:39 Pulse 63 10/08/21 09:39 Resp 18 10/08/21 09:39 BP 120/65 10/08/21 09:39 Pulse Ox 96 10/08/21 09:39 BMI result Body Mass Index 28.9 Const: General: cooperative, comfortable, no acute distress, alert, awake and anxious Nutritional Appearance: average body habitus Orientation/consciousness: patient oriented x3 Limitations: no limitations HEENT: Head: Yes normocephalic and Yes atraumatic Neck: Neck: Yes trachea midline, Yes supple and Yes no JVD Resp: Effort & Inspection: normal respiratory effort Auscultation: clear to auscultation bilaterally Cardio: Jugular venous distension: no JVD Palpation: normal PMI Rate: regular rate Rhythm: regular rhythm Heart sounds: S1 normal heart sound present, S2 normal heart sound present, no click, no gallops and no murmurs GI: Auscultation: normal bowel sounds Skin: General skin exam: no rashes or lesions noted Neuro: General: patient oriented x3 and no focal motor deficits Extrem: General: Yes no clubbing, cyanosis or edema Psych: Appearance: grossly normal Affect: Anxious affect present Objective Labs and Meds Result diagrams: 10/08/21 05:47 10/08/21 05:47 Lab results: Laboratory Results - last 24 hr 10/07/21 10/07/21 10/07/21 22:43 22:43 22:43 WBC 6.5 RBC 4.28 Hgb 12.6 Hct 39.5 MCV 92.3 MCH 29.4 MCHC 31.9 RDW 14.1 Plt Count 207 MPV 12.4 H Immature Gran % (Auto) 0.0 Neut % (Auto) 44.0 L Lymph % (Auto) 45.2 H Garfield % (Auto) 8.3 Eos % (Auto) 2.0 Baso % (Auto) 0.5 Lymph # (Auto) 2.9 Garfield # (Auto) 0.5 Eos # (Auto) 0.1 Baso # (Auto) 0.0 Abs Immat Gran (auto) 0.00 Absolute Neuts (auto) 2.9 Absolute Nucleated RBC 0.000 Nucleated RBC % (auto) 0.0 PT INR APTT D-Dimer High Sensitivty Sodium 144 Potassium 3.7 Chloride 111 H Carbon Dioxide 24 Anion Gap 13 BUN 9 Creatinine 0.70 Estim Creat Clear Calc 94.9 Estimated GFR > 60 Random Glucose 115 Calcium 9.4 Total Bilirubin 0.3 AST 37 H ALT 43 H Alkaline Phosphatase 77 Troponin I High Sens 147.2 H* B-Natriuretic Peptide 59 Total Protein 6.4 L Albumin 3.8 COVID-19 (LAURYN) COVID-19 Clin Com 10/07/21 10/07/21 10/08/21 23:35 23:35 00:58 WBC RBC Hgb Hct MCV MCH MCHC RDW Plt Count MPV Immature Gran % (Auto) Neut % (Auto) Lymph % (Auto) Garfield % (Auto) Eos % (Auto) Baso % (Auto) Lymph # (Auto) Garfield # (Auto) Eos # (Auto) Baso # (Auto) Abs Immat Gran (auto) Absolute Neuts (auto) Absolute Nucleated RBC Nucleated RBC % (auto) PT 11.0 INR 1.0 APTT 33.4 D-Dimer High Sensitivty < 150 Sodium Potassium Chloride Carbon Dioxide Anion Gap BUN Creatinine Estim Creat Clear Calc Estimated GFR Random Glucose Calcium Total Bilirubin AST ALT Alkaline Phosphatase Troponin I High Sens 126.8 H* B-Natriuretic Peptide Total Protein Albumin COVID-19 (LAURYN) Negative COVID-19 Clin Com See Note 10/08/21 10/08/21 05:47 05:47 WBC 5.2 RBC 4.25 Hgb 12.5 Hct 39.9 MCV 93.9 MCH 29.4 MCHC 31.3 RDW 14.0 Plt Count 184 MPV 12.6 H Immature Gran % (Auto) 0.2 Neut % (Auto) 35.1 L Lymph % (Auto) 53.3 H Garfield % (Auto) 8.3 Eos % (Auto) 2.5 Baso % (Auto) 0.6 Lymph # (Auto) 2.8 Garfield # (Auto) 0.4 Eos # (Auto) 0.1 Baso # (Auto) 0.0 Abs Immat Gran (auto) 0.01 Absolute Neuts (auto) 1.8 L Absolute Nucleated RBC 0.000 Nucleated RBC % (auto) 0.0 PT INR APTT D-Dimer High Sensitivty Sodium 144 Potassium 3.8 Chloride 113 H Carbon Dioxide 23 Anion Gap 12 BUN 8 L Creatinine 0.67 Estim Creat Clear Calc 99.2 Estimated GFR > 60 Random Glucose 93 Calcium 9.1 Total Bilirubin AST ALT Alkaline Phosphatase Troponin I High Sens B-Natriuretic Peptide Total Protein Albumin COVID-19 (LAURYN) COVID-19 Clin Com Assessment and Plan (1) Elevated troponin: Status: Acute Elevated troponins in this young woman with rapid heart rate and palpitations, highly unusual for NSTEMI with low risk for coronary artery disease. Likely that this could be tachycardia related troponin leak. We did a bedside echocardiogram to rule out stress-induced cardiomyopathy which is negative. Because of for chest pain and elevated troponins will suggest her to have a treadmill stress test today to absolutely rule out any chance of myocardial ischemia. If this is negative will then pursue treatment for her tachycardia which appears to be going on for many years unlikely that this represents SVT although without any clear EKG diagnosis. See below (2) Heart palpitations: Status: Acute Heart palpitations which her presenting symptoms. She has had it for many years. Likely that this represents SVT. Other arrhythmias such as ventricular tachycardia and/or atrial fibrillation is low likely. Avoidance of stimulants such as caffeine and alcohol was discussed. Stress mitigation strategies discussed. If her workup including treadmill stress test is negative, will pursue treatment with metoprolol. She has had a Holter monitor, prolonged in the past. To further diagnose this arrhythmia and appropriate treatment can be offered, I have advised her to do smart phone based sanjay to assess for tachycardia. This will lead to proper diagnosis and treatment plan. This was discussed with her. She understands agrees. Vagal maneuvers should be pursued as well. Will follow up in the clinic after few weeks. Procedures Date of Service Date of Service: 10/08/21
--- NOTE | 2021-10-08 11:58 | MHC.CM.PN ---
Addendum entered by Jodie Sadler 10/08/21 13:44: PT WILL DC HOME WITH NO SERVICES TODAY FAMILY TO DC Original Note: PT REPORTS SHE LIVES WITH HER MOTHER AND SISTER SHE REPORTS SHE IS INDEPENDENT WITH ALL CARE PT HAS NO DME AND NO SERVICES PT DECLINES TO COMPLETE AT HCP PCP: RAMY ALANIS OBSERVATION NOTICE DELIVERED, COPY SENT TO [facility] CURRENT DC PLAN, HOME NO SERVICES FAMILY TO TRANSPORT
--- NOTE | 2021-10-08 13:35 | PM.DS ---
DS: Providers Provider Date of Service: 10/08/21 Date of admission: 10/08/21 01:32 Primary care physician: Michelle Cruz MD Consults: 10/08/21 01:32 Consult to Cardiology Routine Consulting Provider: James Alvarenga Reason for consultation: elevated trop Has provider been notified: No DS: Diagnosis Discharge Diagnosis (1) Elevated troponin: Status: Acute (2) Heart palpitations: Status: Acute DS: Summary Hospital Course Hospital Course: Chief Complaint: Palpitations, chest pressure This is a 36-year-old female with past medical history of chronic fatigue, dyslipidemia, history of palpitations and tachycardia who into the hospital with complaints of chest pressure as well as palpitations.? Patient reports that for the past 1 year she has had intermittent palpitations, she had workup that included loop recorder, echocardiogram, and TSH which were all negative but showed PVCs.? she reports that today she developed significant palpitations and swell as chest discomfort that felt like pressure in the midsternal region nonradiating, this lasted about 30 minutes, occurred at rest, and spontaneously resolved.? She reports feeling short of breath during this episode.? She denies any dizziness, no headache, no change in vision, no abdominal pain nausea or vomiting, no diarrhea constipation, no urinary symptoms and no lower extremity edema. On arrival to the ED patient hemodynamically stable with no significant abnormal vital, she was given a nitro paste which helped with her chest pressure CBC unremarkable, BMP shows no significant abnormality, troponin initially was found to be 147, decreased to 126 on repeat, EKG shows T-wave inversions in V1, V2, present on EKG from 2015 Holter report from September 2021 showed underlying rhythm is sinus, rare supraventricular and ventricular ectopy, no sustained arrhythmias Patient will be admitted for observation and cardiology evaluation Hospital course 36-year-old female with past medical history as mentioned including palpitations, GERD, as well as hyperlipidemia who presents to the hospital with complaints of palpitations as well as chest pressure found to have elevated troponin patient admitted to medical floor and evaluated by Cardiology and echocardiogram was obtained that showed EF 55-60%, with normal left ventricular size thickness and systolic function there is no evidence of pericardial effusion, patient underwent stress test that showed rate related left bundle branch block but patient has no ischemic changes and no palpitation during stress test, Cardio recommend Toprol-XL 25 mg to control palpitation and recommend close outpatient follow-up. Patient had normal TSH in the past. Time Spent with Patient Time attestation: Total time spent providing and/or coordinating discharge services: Discharge coordination time: Greater than 30 minutes Quality: Safe Use of Opioids Does Pt have an Active Cancer Diagnosis on the Problem List?: No Quality: Stroke Does the patient have a stroke diagnosis?: No Physical Exam Vital Signs: Vital Signs: Last Vital Signs Temp 98.6 F 10/08/21 09:39 Pulse 63 10/08/21 09:39 Resp 18 10/08/21 09:39 BP 120/65 10/08/21 09:39 Pulse Ox 96 10/08/21 09:39 BMI result Body Mass Index 28.9 Const: Other: General awake alert x3 resting comfortably in no acute distress. Neck is supple no JVD. CVS regular rate rhythm, Respiratory lungs clear to auscultation, no respiratory distress, no wheeze, no rhonchi. Gastrointestinal abdomen soft, nontender, bowel sounds audible Extremities no edema. Neuro nonfocal , speech clear. Skin no rash Psych appropriate affect DS: Data Data Completed and Pending Labs on day of discharge: Laboratory Results - last 24 hr 10/07/21 10/07/21 10/07/21 22:43 22:43 22:43 WBC 6.5 RBC 4.28 Hgb 12.6 Hct 39.5 MCV 92.3 MCH 29.4 MCHC 31.9 RDW 14.1 Plt Count 207 MPV 12.4 H Immature Gran % (Auto) 0.0 Neut % (Auto) 44.0 L Lymph % (Auto) 45.2 H Gregg % (Auto) 8.3 Eos % (Auto) 2.0 Baso % (Auto) 0.5 Lymph # (Auto) 2.9 Gregg # (Auto) 0.5 Eos # (Auto) 0.1 Baso # (Auto) 0.0 Abs Immat Gran (auto) 0.00 Absolute Neuts (auto) 2.9 Absolute Nucleated RBC 0.000 Nucleated RBC % (auto) 0.0 PT INR APTT D-Dimer High Sensitivty Sodium 144 Potassium 3.7 Chloride 111 H Carbon Dioxide 24 Anion Gap 13 BUN 9 Creatinine 0.70 Estim Creat Clear Calc 94.9 Estimated GFR > 60 Random Glucose 115 Calcium 9.4 Total Bilirubin 0.3 AST 37 H ALT 43 H Alkaline Phosphatase 77 Troponin I High Sens 147.2 H* B-Natriuretic Peptide 59 Total Protein 6.4 L Albumin 3.8 COVID-19 (LAURYN) COVID-19 [employer] Com 10/07/21 10/07/21 10/08/21 23:35 23:35 00:58 WBC RBC Hgb Hct MCV MCH MCHC RDW Plt Count MPV Immature Gran % (Auto) Neut % (Auto) Lymph % (Auto) Gregg % (Auto) Eos % (Auto) Baso % (Auto) Lymph # (Auto) Gregg # (Auto) Eos # (Auto) Baso # (Auto) Abs Immat Gran (auto) Absolute Neuts (auto) Absolute Nucleated RBC Nucleated RBC % (auto) PT 11.0 INR 1.0 APTT 33.4 D-Dimer High Sensitivty < 150 Sodium Potassium Chloride Carbon Dioxide Anion Gap BUN Creatinine Estim Creat Clear Calc Estimated GFR Random Glucose Calcium Total Bilirubin AST ALT Alkaline Phosphatase Troponin I High Sens 126.8 H* B-Natriuretic Peptide Total Protein Albumin COVID-19 (LAURYN) Negative COVID-19 [employer] Com See Note 10/08/21 10/08/21 05:47 05:47 WBC 5.2 RBC 4.25 Hgb 12.5 Hct 39.9 MCV 93.9 MCH 29.4 MCHC 31.3 RDW 14.0 Plt Count 184 MPV 12.6 H Immature Gran % (Auto) 0.2 Neut % (Auto) 35.1 L Lymph % (Auto) 53.3 H Gregg % (Auto) 8.3 Eos % (Auto) 2.5 Baso % (Auto) 0.6 Lymph # (Auto) 2.8 Gregg # (Auto) 0.4 Eos # (Auto) 0.1 Baso # (Auto) 0.0 Abs Immat Gran (auto) 0.01 Absolute Neuts (auto) 1.8 L Absolute Nucleated RBC 0.000 Nucleated RBC % (auto) 0.0 PT INR APTT D-Dimer High Sensitivty Sodium 144 Potassium 3.8 Chloride 113 H Carbon Dioxide 23 Anion Gap 12 BUN 8 L Creatinine 0.67 Estim Creat Clear Calc 99.2 Estimated GFR > 60 Random Glucose 93 Calcium 9.1 Total Bilirubin AST ALT Alkaline Phosphatase Troponin I High Sens B-Natriuretic Peptide Total Protein Albumin COVID-19 (LAURYN) COVID-19 Clin Com Discharge Plan Discharge Patient Disposition: Home, Self-Care Discharge Diagnosis: Elevated troponin Heart palpitations/Tachycardia Referrals: Michelle Tovar MD [Primary Care Provider] - 1 Week Discharge Medications: New metoprolol succinate 25 mg capsule,sprinkle,ER 24hr 25 mg PO DAILY Qty: 30 0RF Continued multivitamin Tablet 1 tab PO DAILY 0RF apple cider vinegar 300 mg Tablet 300 mg PO DAILY 0RF simethicone [Gas Relief (simethicone)] 180 mg capsule 180 mg PO QID PRN (Reason: Abdominal Distention) 0RF calcium carbonate [Tums E-X] 300 mg (750 mg) tablet,chewable 300 mg PO TID PRN (Reason: Indigestion) 0RF Discharge Orders: Discharge Order (Routine); Ordered 10/08/21 Ordered By: Slick Felix Diet: advance to usual diet Activity on Discharge: As tolerated Stand Alone Forms: Patient Portal Discharge page Care Plan Goals: Chronic palpitations, with elevated troponin likely due to tachycardia stress test and echocardiogram showed no evidence of acute coronary syndrome Health Concerns: Continue all home medication Plan of Treatment: Outpatient follow-up with Cardiology for further testing for tachycardia in next 1-2 weeks, cardiology will call for appointment, call Dr. Antoine office if do not hear from Cardio Assessment: as per dc summary
[2021-10-08 13:49] VITALS: BP 121/68; PULSE 64; RESP 13; TEMP 36.6; O2SAT 100
== END 2021-10-08 19:50 | disposition home or self-care (01) ==
LOC: HO.ED 10-08 01:32 → HO.EDOVER 10-08 01:38
PROVIDERS: Admitting Provider Internal Medicine; Emergency Provider Internal Medicine; PCP Internal Medicine; Visit Provider Hospitalist
DX: R00.2 Palpitations (principal); I21.4 Non-ST elevation (NSTEMI) myocardial infarction; R77.8 Other specified abnormalities of plasma proteins; R06.02 Shortness of breath; R00.0 Tachycardia, unspecified; I45.4 Nonspecific intraventricular block; R53.82 Chronic fatigue, unspecified; E78.5 Hyperlipidemia, unspecified; F41.9 Anxiety disorder, unspecified; Z20.822 Contact with and (suspected) exposure to COVID-19; Z98.890 Other specified postprocedural states; Z79.899 Other long term (current) drug therapy
CPT/HCPCS: 36415; 80048; 80053; 83880; 84484; 85025; 85379; 85610; 85730; 87635; 93005; 93017; 93308; 93356; 96374; 99219; 99285

== ENCOUNTER → 2021-10-19 10:00 | Outpatient (REF) | payer OTHER, SELFPAY ==
--- NOTE | ~2021-10-19 | NM_ITS ---
Myocardial perfusion study Indication: Palpitations and chest discomfort to evaluate for myocardial ischemia Technique: The patient was brought in for a Lexiscan perfusion study on 10/19/2021. Patient performed low-level exercise and was injected 0.4 mg of Lexiscan intravenously. Within a minute of injection, 25 mCi of sestamibi was given intravenously. Images were obtained using the SPECT gamma camera interlaced with the gating device. Images were obtained in supine position. Resting perfusion study was performed on 10/20/2021. Patient was administered 25 mCi of sestamibi intravenously at rest. Images were then obtained in supine position. Images obtained with and without CT attenuation. Total DLP 108 mGy-cm. Images were processed with the software and compared side to side in short axis, horizontal long axis and vertical long axis views. Findings: Both stress and rest perfusion study is suboptimal due to intense subdiaphragmatic liver uptake interfering with inferior wall uptake reducing uptake in all segments of LV myocardium. Inferior wall interference is worse with resting perfusion study The stress perfusion study showed non attenuated images show moderately reduced uptake in the distal anterior and severely reduced uptake in the apex of the LV myocardium. Remainder of the LV myocardium is normally attenuation corrected images suboptimal with diffuse reduced uptake in the anterior wall with severely reduced uptake in the distal anterior and apex as well as septal wall of the LV myocardium.. The gated study shows normal LV systolic function with visually estimated LVEF of greater than 60%. LV cavity is normal in size. The gated study shows normal systolic wall thickening and contraction of segments. Resting study shows non attenuated images show mildly to moderately reduced uptake in the anterior wall with severely reduced uptake in the apex of the LV myocardium and mildly reduced uptake in the anterolateral wall of the LV myocardium.. Gating at rest reveals normal systolic wall motion with visually estimated ejection fraction at greater than 60%. The findings are consistent with no clear reversible defect but fixed defect in distal anterior and apical wall cannot be entirely ruled out. There is no clear ischemia although infarct is positive ulnar basal wall motion abnormality. Gating artifact. Suboptimal findings due to intense subdiaphragmatic uptake interfering with myocardial uptake.. NM/NM cardiolite stress test Impression: 1. Myocardial perfusion imaging study shows suboptimal study but overall appears to have normal myocardial perfusion with fixed distal anterior and apical defect most sternal artifact 2. Gated LVEF is greater than 60 % 3. Transient ischemic dilatation not present EKG is nondiagnostic for ischemia
--- NOTE | 2021-10-19 10:03 | CA_ITS ---
Acquisition Time: 2021-10-19 10:25:56 Total Exercise Time: 00:02:00 Test Indications: R00.2 - Palpitations Medications: Protocol: LEXISCAN Max HR: 086 BPM 46% of Pred: 184 BPM Max BP: 106/060 mmHG Max Work Load: 1.0 METS Pharmacological stress test with Lexiscan injection, while sitting and kicking her legs, without anginal symptoms, without arrythmia, with normotensive response to injection, with nondiagnostic EKG for ischemia. Nuclear images pending. Test reviewed with Dr Valdez Referred By: Peace Mcnally Overread By: PEACE MCNALLY
== END ==
LOC: HO.CARD 10:00
PROVIDERS: PCP Internal Medicine; Visit Provider Nurse Practitioner Family
DX: R00.2 Palpitations (principal); I21.4 Non-ST elevation (NSTEMI) myocardial infarction; R77.8 Other specified abnormalities of plasma proteins
CPT/HCPCS: 78452; 93017; A9500; J0280; J2785

== ENCOUNTER → 2021-10-26 13:48 | Outpatient (REF) | payer OTHER, SELFPAY ==
--- NOTE | 2021-10-26 13:50 | HM_ITS ---
REQUESTING PROVIDER: Peace Mcnally N.P. FINDINGS: I was asked to read this report today. Patient was hooked up to cardiac event monitor recording from 10/26/2021, to 11/25/2021, for a total period of 30 days. FINDINGS: 1. Baseline rhythm is normal sinus rhythm with heart rate varying from 65 beats per minute to 131 beats per minute. 2. No significant arrhythmias noted and no ectopy noted. 3. The patient reported multiple events of palpitations, which correlated with sinus rhythm. CONCLUSION: Event monitor is remarkable for: 1. Baseline normal sinus rhythm with no significant arrhythmias. 2. The patient reported multiple events of palpitations correlated with sinus rhythm. Matty Cronin MD NRS/MODL / [id number]
== END ==
LOC: HO.CARD 13:48
PROVIDERS: PCP Internal Medicine; Visit Provider Nurse Practitioner Family
DX: R00.2 Palpitations (principal); I44.7 Left bundle-branch block, unspecified
CPT/HCPCS: 93270

== ENCOUNTER 2021-11-02 13:37 | Outpatient (REF) | payer OTHER, SELFPAY ==
[2021-11-02 17:18] LABS: CT PCR NOT DETECTED (Not Detect.); NG PCR NOT DETECTED (Not Detect.)
[2021-11-03 09:24] LABS: BV Int Neg Control Negative (Negative); BV Int Pos Control Positive (Positive)
[2021-11-05 06:25] LABS: HPV mRNA E6/E7 rflx Not Detected (Not Detected)
== END 2021-11-02 13:38 | disposition home or self-care (01) ==
LOC: HO.LAB 13:37
PROVIDERS: PCP Internal Medicine; Visit Provider Advanced Practice Midwife
DX: Z01.419 Encounter for gynecological examination (general) (routine) without abnormal findings (principal); Z11.51 Encounter for screening for human papillomavirus (HPV); N92.0 Excessive and frequent menstruation with regular cycle
CPT/HCPCS: 87480; 87491; 87510; 87591; 87624; 87660; 88142

== ENCOUNTER 2021-11-17 14:15 | Outpatient (REF) | payer OTHER, SELFPAY ==
--- NOTE | ~2021-11-17 | US_ITS ---
EXAMINATION: US PELVIS CLINICAL INFORMATION: Excessive and frequent menstruation. COMPARISON: Normal pelvic ultrasound 11/06/2020 TECHNIQUE: Ultrasound of the pelvis is performed using both transabdominal and transvaginal transducers along with Doppler. Transvaginal imaging is performed due to inadequate visualization transabdominally. FINDINGS: Uterus: The uterus is anteverted, anteflexed and measures 7.2 cm in length, 4.0 cm in AP and 4.1 cm in transverse dimension. The double wall endometrial thickness is 1.0 cm. There is a small anechoic endometrial cyst. The uterus is smooth in contour and has normal myometrial echogenicity. No visible fibroid. There are anechoic cysts in the cervix. Adnexa: Both ovaries are visualized. There is normal color flow to the adnexa. There is no ovarian torsion. There is no pelvic ascites or fluid collection. Right ovary measures 2.6 x 1.6 x 2.1 and volume 3.2 mL. There are multiple follicles visualized. Left ovary measures 2.3 x 1.7 x 1.4 cm and volume 2.0 mL. There are multiple follicles visualized. There is a small amount of free fluid in cul-de-sac and moderate free fluid in the right adnexa. US/US pelvic and transvaginal IMPRESSION: Endometrial cyst with endometrial thickening of 1.0 cm within normal limits for patient's age. Several nabothian cysts in the cervix. Small bilateral ovarian follicles are normal. Small amount of free fluid in the cul-de-sac and moderate free fluid in the right adnexa.
[2021-11-17 16:00] LABS: Anion Gap 11 (12-20); Blood Urea Nitrogen 10 mg/dL (9-16); Calcium 9.7 mg/dL (8.4-10.2); Carbon Dioxide 28 mmol/L (22-29); Chloride 106 mmol/L (96-108); Estimated Glomerular Filt Rate > 60; Glucose Random 89 mg/dL (60-115); Sodium 141 mmol/L (135-145)
[2021-11-17 16:44] LABS: Syphilis Screen Nonreactive (Nonreactive)
[2021-11-18 08:43] LABS: HBc Num1 0.04 S/CO (0.00-0.79); HIV AB/AG Nonreactive (Nonreactive); HIV Num 1 0.06 S/CO (0.00-0.99); Hepatitis B Core Antibody Nonreactive (Nonreactive); ~HepC Num1 0.04 S/CO (0.00-0.79); ~Hepatitis C Antibody Nonreactive (Nonreactive)
== END 2021-11-17 14:16 | disposition home or self-care (01) ==
LOC: HO.US 14:15
PROVIDERS: Nurse Practitioner Family; PCP Internal Medicine; Visit Provider Advanced Practice Midwife
DX: Z11.4 Encounter for screening for human immunodeficiency virus [HIV] (principal); N92.0 Excessive and frequent menstruation with regular cycle; I44.7 Left bundle-branch block, unspecified; Z20.2 Contact with and (suspected) exposure to infections with a predominantly sexual mode of transmission
CPT/HCPCS: 36415; 76830; 76856; 80048; 86704; 86780; 86803; 87389

== ENCOUNTER → 2021-11-29 15:06 | Outpatient (BNVA) | payer OTHER, SELFPAY | PROVIDERS: PCP Internal Medicine; Visit Provider Advanced Practice Midwife | DX: Z71.2 Person consulting for explanation of examination or test findings (principal); N92.0 Excessive and frequent menstruation with regular cycle | CPT/HCPCS: 99212 ==

== ENCOUNTER 2021-12-21 16:01 | Outpatient (REF) | payer OTHER, SELFPAY ==
[2021-12-21 16:37] LABS: Alanine Aminotransferase 46 U/L (0-31); Albumin Level 4.3 g/dL (3.5-5.0); Alkaline Phosphatase 84 U/L (39-117); Anion Gap 10 (12-20); Aspartate Amino Transferase 34 U/L (5-31); Bilirubin Total 0.3 mg/dL (0.0-1.0); Blood Urea Nitrogen 11 mg/dL (9-16); Calcium 9.4 mg/dL (8.4-10.2); Carbon Dioxide 28 mmol/L (22-29); Chloride 110 mmol/L (96-108); Cholesterol 171 mg/dL; Estimated Glomerular Filt Rate > 60; Glucose Fasting 89 mg/dL (60-99); HDL Cholesterol 43 mg/dL; LDL Cholesterol Calculated 98 mg/dl; Potassium 3.9 mmol/L (3.3-5.1); Sodium 144 mmol/L (135-145); Total Protein 6.8 g/dL (6.5-8.0); Triglycerides 150 mg/dL
== END 2021-12-21 16:02 | disposition home or self-care (01) ==
LOC: HO.LAB 16:01
PROVIDERS: Nurse Practitioner Family; PCP Internal Medicine; Visit Provider Internal Medicine
DX: Z00.00 Encounter for general adult medical examination without abnormal findings (principal); I44.7 Left bundle-branch block, unspecified; R00.0 Tachycardia, unspecified; R53.82 Chronic fatigue, unspecified; E78.5 Hyperlipidemia, unspecified; R63.5 Abnormal weight gain
CPT/HCPCS: 36415; 80048; 80053; 80061; 84443

== ENCOUNTER → 2021-12-22 13:54 | Outpatient (BNVA) | payer OTHER, SELFPAY | PROVIDERS: PCP Internal Medicine; Referring Provider Internal Medicine; Visit Provider Nurse Practitioner Family | DX: R00.2 Palpitations (principal); R00.0 Tachycardia, unspecified; I44.7 Left bundle-branch block, unspecified; R93.1 Abnormal findings on diagnostic imaging of heart and coronary circulation; R77.8 Other specified abnormalities of plasma proteins | CPT/HCPCS: 99212 ==

== ENCOUNTER → 2022-01-11 16:28 | Outpatient (BNVA) | payer OTHER, SELFPAY | PROVIDERS: PCP Internal Medicine; Referring Provider Internal Medicine; Visit Provider Nurse Practitioner | DX: K21.9 Gastro-esophageal reflux disease without esophagitis (principal); R14.0 Abdominal distension (gaseous) | CPT/HCPCS: 99212 ==

== ENCOUNTER → 2022-07-12 14:18 | Outpatient (BNVA) | payer OTHER, SELFPAY | PROVIDERS: PCP Internal Medicine; Visit Provider Nurse Practitioner | DX: R14.0 Abdominal distension (gaseous) (principal); K21.9 Gastro-esophageal reflux disease without esophagitis | CPT/HCPCS: 99212 ==

== ENCOUNTER 2022-11-11 10:01 | Outpatient (REF) | payer OTHER, SELFPAY | END 2022-11-11 10:02 | disposition home or self-care (01) | LOC: HO.LNP 10:01 | PROVIDERS: PCP Internal Medicine; Visit Provider Advanced Practice Midwife | DX: Z13.89 Encounter for screening for other disorder (principal) ==

== ENCOUNTER 2022-11-11 11:12 | Outpatient (REF) | payer OTHER, SELFPAY ==
[2022-11-11 11:47] LABS: Hematocrit 40.9 % (37.0-47.0); Mean Corpuscular HGB Conc 31.8 g/dl (31.0-35.0); Mean Corpuscular Hemoglobin 29.1 pg (27.0-33.0); Mean Corpuscular Volume 91.5 fL (80.0-98.0); Mean Platelet Volume 12.3 fL (9.4-12.3); Platelet Count 210 X10*3/uL (160-400); Red Blood Count 4.47 X10*6/uL (4.20-5.50); Red Cell Distribution Width 14.1 % (11.0-16.0); White Blood Count 6.1 X10*3/uL (4.8-10.8)
[2022-11-11 12:58] LABS: Thyroid Stimulating Hormone 2.97 uIU/mL (0.32-4.0)
[2022-11-11 12:59] LABS: HBc Num1 0.05 S/CO (0.00-0.79); HIV AB/AG Nonreactive (Nonreactive); HIV Num 1 0.07 S/CO (0.00-0.99); Hepatitis B Core Antibody Nonreactive (Nonreactive); ~HepC Num1 0.05 S/CO (0.00-0.79); ~Hepatitis C Antibody Nonreactive (Nonreactive)
[2022-11-11 13:00] LABS: Syphilis Screen Nonreactive (Nonreactive)
[2022-11-11 14:11] LABS: CT PCR NOT DETECTED (Not Detect.); NG PCR NOT DETECTED (Not Detect.)
[2022-11-12 14:51] LABS: BV Int Neg Control Negative (Negative); BV Int Pos Control Positive (Positive)
== END 2022-11-11 11:13 | disposition home or self-care (01) ==
LOC: HO.LAB 11:12
PROVIDERS: PCP Internal Medicine; Visit Provider Advanced Practice Midwife
DX: Z11.4 Encounter for screening for human immunodeficiency virus [HIV] (principal); Z20.2 Contact with and (suspected) exposure to infections with a predominantly sexual mode of transmission; N92.1 Excessive and frequent menstruation with irregular cycle; Z87.42 Personal history of other diseases of the female genital tract
CPT/HCPCS: 0353U; 84443; 85027; 86704; 86780; 86803; 87389; 87480; 87510; 87660

== ENCOUNTER 2022-11-17 13:05 | Outpatient (REF) | payer OTHER, SELFPAY ==
--- NOTE | ~2022-11-17 | US_ITS ---
EXAMINATION: US PELVIS COMPLETE CLINICAL INFORMATION: Excessive and frequent bleeding COMPARISON: Ultrasound 11/17/2021 TECHNIQUE: Transabdominal and transvaginal imaging was performed. FINDINGS: The uterus is of normal size and echogenicity measuring 7.0 x 3.7 x 4.4 cm. A regular homogeneous endometrium is identified measuring 1.0 cm. Nabothian cysts in the cervix. Subendometrial cystic change again seen, which could be seen in the setting of adenomyosis or tamoxifen associated endometrial changes. Both ovaries are of appearance and and echogenicity. The right measures 3.3 x 2.2 x 3.0 cm for a volume of 11.6 mL. A physiologic involuting right hemorrhagic corpus luteum measuring 2.4 cm, no follow-up imaging recommended. The left measures 3.0 x 1.0 x 1.7 cm for a volume of 2.6 mL. There is small simple physiologic volume pelvic free fluid. US/US pelvic and transvaginal IMPRESSION: 1. Subendometrial cystic change again seen, which could be seen in the setting of adenomyosis or tamoxifen associated endometrial changes. 2. A physiologic involuting right hemorrhagic corpus luteum measuring 2.4 cm, no follow-up imaging recommended.
== END 2022-11-17 13:06 | disposition home or self-care (01) ==
LOC: HO.US 13:05
PROVIDERS: PCP Internal Medicine; Visit Provider Advanced Practice Midwife
DX: N92.0 Excessive and frequent menstruation with regular cycle (principal); Z87.42 Personal history of other diseases of the female genital tract
CPT/HCPCS: 76830; 76856

== ENCOUNTER → 2022-11-25 13:16 | Outpatient (BNVA) | payer OTHER, SELFPAY | PROVIDERS: PCP Internal Medicine; Visit Provider Advanced Practice Midwife | DX: Z71.2 Person consulting for explanation of examination or test findings (principal); N80.109 Endometriosis of ovary, unspecified side, unspecified depth; N80.03 Adenomyosis of the uterus; N94.6 Dysmenorrhea, unspecified; N92.0 Excessive and frequent menstruation with regular cycle | CPT/HCPCS: 99212 ==

== ENCOUNTER 2022-12-20 08:12 | Outpatient (AMB) | payer OTHER, SELFPAY ==
--- NOTE | 2022-12-20 08:19 | A.OFFPC_ITS ---
Vital Signs 12/20/22 08:22 Height 5 ft Weight 154 lb BMI 30.1 BP 118/80 Blood Pressure Location Lt brachial Position Sitting Intake Visit Reasons: Annual Exam Intake Note: Patient here for an annual physical exam Online Editor Required: No Accompanied by: Self / Same As Patient Allergies No Known Allergies Allergy (Verified 12/20/22 08:36) Medication List - Last Reconciled 12/20/22 by Michelle Cruz MD calcium carbonate (Tums E-X) 300 mg PO TID PRN simethicone 180 mg PO BID 30 days Tobacco use date assessed: 12/20/22 Dental Screening Dental Screen Date: 12/20/22 Did you have a dental visit in the last 12 months?: No Did you have a dental problem in the last 6 months where you did not have access to dental care?: No Was dental information given to patient?: Patient has dentist HPI HPI Comments History of Present Illness Details This is a 37-year-old female that comes for her physical exam. Last Pap smear was 2021 and was normal with HPV negative. No chest pain or shortness of breath. Some abdominal bloating and has appointment with Gastroenterology. [facility] Medical History Abdominal bloating Adenomyosis Chronic fatigue Dyslipidemia Dysmenorrhea Heavy menstrual bleeding History of painful menstruation Palpitations Physical exam Right knee pain Shortness of breath Tachycardia Surgical History History of loop electrical excision procedure (LEEP) Family History Father No problems noted. 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 1. Little interest or pleasure in doing things: not at all 2. Feeling down, depressed, or hopeless: not at all 3. Trouble falling or staying asleep, or sleeping too much: not at all 4. Feeling tired or having little energy: not at all 5. Poor appetite or overeating: not at all 6. Feeling bad about yourself - or that you are a failure or have let yourself or your family down: not at all 7. Trouble concentrating on things, such as reading the newspaper or watching television: not at all 8. Moving or speaking so slowly that other people could have noticed. Or the opposite - being so fidgety or restless that you have been moving around a lot more than usual: not at all 9. Thoughts that you would be better off or of hurting yourself in some way: not at all Total score: 0 Depression Screening Interpretation: Negative 54904 - PHQ-9 Billing: Yes Source: Developed by Drs. Charly Foster, Yasmeen Joshua, Mannie saldana nd colleagues, with an educational ana maría from [employer]. Thrive Questionnaire Date Thrive assessed: 12/20/22 I am a: Patient What is your living situation today?: I have a steady place to live Within the past 12 months, did the food you bought not last and you didn't have the money to get more?: Never true Within the past 12 months, did you worry whether your food would run out before you got money to buy more?: Never true Do you have trouble paying for medicines?: No Do you have trouble getting transportation to medical appointments?: No Do you have trouble paying your heating and electricity bill?: No Do you have trouble taking care of your child, family member or friend?: No Do you have trouble with day-to-day activities such as bathing, preparing meals, shopping, managing finances, etc.?: No Are you currently unemployed and looking for a job?: No Are you interested in more education?: No Please select the resources that you would like help with: None Currently or been in a relationship where the following occur: no concerns reported AUDIT C Alcohol Use Questionnaire (AUDIT-C) 1. How often do you have a drink containing alcohol?: Monthly or less 2. How many drinks containing alcohol do you have on a typical day when you are drinking?: 1 or 2 3. How often do you have six or more drinks on one occasion?: Never Total Score: 1 Score Reviewed/Action Taken: No SHARON-7 AMB Questionnaire SHARON-7 Date SHARON - 7 assessed: 12/20/22 Feeling nervous, anxious, or on edge: 0 = Not at all Not being able to stop or control worryin = Not at all Worrying too much about different things: 0 = Not at all Trouble relaxin = Not at all Being so restless that it is hard to sit still: 0 = Not at all Becoming easily annoyed or irritable: 0 = Not at all Feeling afraid as if something awful might happen: 0 = Not at all Total SHARON-7 score (0-4 normal; 5-9 mild; 10-14 moderate; 15-21 severe): 0 Source: Developed by Drs. Charly Foster, Yasmeen Joshua, Mannie Renteria and colleagues, with an educational ana maría from [employer]. SHARON-7 Assessment Billing SHARON-7 Assessment Tool: SHARON-7 Assessment 51875 Review of Systems Const All systems reviewed & are unremarkable except as noted in HPI and below Eyes Reports no additional complaints, Denies change in vision and Denies other visual disturbances Card Denies chest pain at rest, Denies chest pain with activity, Denies edema, Denies irregular heart rhythm, Denies claudication, Denies dyspnea, Denies dyspnea on exertion, Denies orthopnea, Denies paroxysmal nocturnal dyspnea and Denies slow heart rate Resp Denies cough, Denies dyspnea and Denies dyspnea on exertion GI Denies abdominal pain, Denies change in bowel habits, Denies excessive flatus, Denies nausea and Denies vomiting Denies urinary incontinence, Denies urinary hesitancy and Denies urinary urgency Musc Denies abnormal gait, Denies atrophy, Denies deformity and Denies limited range of motion Skin/Breast Denies bleeding lesions, Denies changing lesions and Denies rash Neuro Denies abnormal gait, Denies confusion and Denies lack of coordination Psych Denies confusion Physical exam (Primary Care) Vital Signs: Last Vital Signs BP 118/80 12/20/22 08:22 BMI result Body Mass Index 30.1 Tobacco/Smoking Status: Tobacco use Status Tobacco use date assessed 12/20/22 12/20/22 08:26 Patient Tobacco Use Status Never used Tobacco 12/20/22 08:26 e-Cigarette/Vaping Use Never Used 12/20/22 08:26 PHQ-9: PHQ-9 Score PHQ-9: Total score 0 12/20/22 08:26 Depression Screening Interpretation: Negative Thrive Assessment: Date of Thrive Assessment Date Thrive assessed 12/20/22 12/20/22 08:26 Currently or been in a relationship where the following occur: no concerns reported Const General: No confusion Orientation/consciousness: patient oriented x3 and No confusion Eyes General: appearance normal, both eyes and all related structures Eyelids: Yes eyelids normal Conjunctivae: conjunctivae normal Neck Neck: Yes normal visual inspection and Yes supple Resp Effort & Inspection: normal respiratory effort Auscultation: clear to auscultation bilaterally Cardio Jugular venous distension: no JVD Rate: regular rate Rhythm: regular rhythm Heart sounds: S1 normal heart sound present and S2 normal heart sound present GI Inspection: Yes normal to inspection Palpation (GI): Soft to palpation and nontender Auscultation: normal bowel sounds Skin General skin exam: no rashes or lesions noted Neuro General: patient oriented x3, no focal motor deficits and No confusion Extrem General: Yes full ROM Psych Appearance: grossly normal Assessment and Plan Assessment & Plan (1) Physical exam: Code(s): Z00.00 - Encounter for general adult medical examination without abnormal findings Plan: Repeat in a year Orders: Orders Comprehensive [place]. Panel Fast Today Z00.00 - Encounter for general adult medical examination without abnormal findings Lipid Panel Today Z00.00 - Encounter for general adult medical examination without abnormal findings Coding Level of Care Code Est Pt Prev Care 18-39y(99271) Diagnoses Physical exam Z00.00 Additional Codes SHARON-7 Assessment Billing - SHARON-7 Assessment Tool: SHARON-7 Assessment 47131 ([id number]) Time Spent (min) 31
[2022-12-20 08:22] VITALS: BP 118/80; BMI 30.1
== END 2022-12-20 08:45 | disposition home or self-care (01) ==
PROVIDERS: PCP Internal Medicine; Visit Provider Internal Medicine
DX: Z00.00 Encounter for general adult medical examination without abnormal findings (principal)
CPT/HCPCS: 99395

== ENCOUNTER 2022-12-20 08:52 | Outpatient (REF) | payer OTHER, SELFPAY ==
[2022-12-20 09:43] LABS: Alanine Aminotransferase 27 U/L (0-31); Albumin Level 3.9 g/dL (3.5-5.0); Alkaline Phosphatase 80 U/L (39-117); Anion Gap 11 (12-20); Aspartate Amino Transferase 22 U/L (5-31); Bilirubin Total 0.4 mg/dL (0.0-1.0); Blood Urea Nitrogen 13 mg/dL (9-16); Calcium 10.2 mg/dL (8.4-10.2); Carbon Dioxide 26 mmol/L (22-29); Chloride 109 mmol/L (96-108); Cholesterol 162 mg/dL; Estimated Glomerular Filt Rate > 60; Glucose Fasting 93 mg/dL (60-99); HDL Cholesterol 45 mg/dL; LDL Cholesterol Calculated 68 mg/dl; Potassium 3.6 mmol/L (3.3-5.1); Sodium 142 mmol/L (135-145); Total Protein 6.8 g/dL (6.5-8.0); Triglycerides 249 mg/dL
== END 2022-12-20 08:53 | disposition home or self-care (01) ==
LOC: HO.LAB 08:52
PROVIDERS: PCP Internal Medicine; Visit Provider Internal Medicine
DX: Z00.00 Encounter for general adult medical examination without abnormal findings (principal)
CPT/HCPCS: 36415; 80053; 80061

== ENCOUNTER 2023-01-13 14:57 | Outpatient (AMB) | payer SELFPAY ==
--- NOTE | 2023-01-13 14:59 | A.OFFVIS_ITS ---
Intake Vital Signs 01/13/23 15:07 Height 5 ft Weight 153 lb 14.122 oz BMI 30.0 BP 112/62 Blood Pressure Location Lt brachial Position Sitting Pulse 58 Intake Visit Reasons: 6 month follow up Intake Note: Nessa presents in the office as a 6 months follow up. CC: Pt reports she is now having diarrhea more often and continues to have bdominal discomfort, increased gas, and acid reflux. She reports she gets diarrhea usually once or twice every month. Denies other GI symptoms. 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 She asks why she gets sleepy after eating, and I don't have a good reason for it - this tends to happen as we age, but she also should be watching her sugars as a rapid glucose rise sometimes after meals can cause fatigue and can be a sign of pre diabetes. She is eating more healthy foods, and since this includes more fruits and veggies she will at times have more gas. ROV 6 mos. (2) Abdominal bloating: ?Code(s): R14.0 - Abdominal distension (gaseous) ? ? ? Medications: New calcium carbonate (Tums E-X) 300 mg PO TID PRN 90 tabs 6RF Indige stion K21.9 - Gastro-eso phageal reflux dis ease without esoph agitis ? Refilled simethicone ?? aft er meals 180 mg PO BID 60 c aps 6RF 30 days R14.0 - Abdominal distension (gaseou s), K21.9 - Gastro -esophageal reflux disease without e sophagitis TODAY'S VISIT She has been noticing diarrhea about twice a month, this will last only a day or so. I ask her to keep a food diary and a menses diary to see if she can make connections. She does note this happens around her menses. She continues on her simethicone and tums. 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 I advise her to eat smaller, more frequent meals and its okay to drink a 5 hour energy shot if only once a day as she reports (she likes this better than coffee which upsets her stomach.). ROV 6 mos. PFS Medical History Abdominal bloating Adenomyosis Chronic fatigue Dyslipidemia Dysmenorrhea Heavy menstrual bleeding History of painful menstruation Palpitations Physical exam Right knee pain Shortness of breath Tachycardia Surgical History History of loop electrical excision procedure (LEEP) Family History Father No problems noted. Mother Kidney disease High blood pressure Sister Parkinsons disease Muscular dystrophy Maternal Grandfather Cancer Maternal Aunt Diabetes Maternal Grandmother Kidney disease Social History Household Members: Family Housing: Apartment Alcohol intake: current Alcohol intake frequency: holidays/special occasions only Alcohol type: wine and hard liquor Patient Tobacco Use Status: Never used Tobacco e-Cigarette/Vaping Use: Never Used Second Hand Smoke Exposure: No service: No Current occupational status: employed Current occupation: [employer] Current occupational exposures/hazards: No Sexual orientation: Straight/Heterosexual Gender identity: Female Cognitive needs: No Hearing needs: No Vision needs: No Female Reproductive History Menstrual Age of Menarche: 13 Review of Systems Const Denies fatigue, Denies fever(s), Denies night sweats, Denies poor appetite and Denies weight loss ENT Reports Normal hearing present, Denies dental pain, Denies dysphagia, Denies hearing loss, Denies mouth pain, Denies odynophagia, Denies throat swelling, Denies tongue swelling and Reports other (Dentition adequate) Card Reports no additional complaints Resp Reports no additional complaints GI Denies abdominal pain, Denies melena, Reports bloating, Denies hematochezia, Denies constipation, Denies GI cramping, Denies dysphagia, Denies excessive flatus, Denies early satiety, Reports heartburn, Reports diarrhea, Denies nausea, Denies odynophagia, Denies vomiting and Denies hematemesis Skin/Breast Denies pruritus, Denies lesions, Denies rash and Denies jaundice Neuro Reports Normal hearing present and Denies Abnormal speech present Endo Denies fatigue Aller/Immun Denies throat swelling and Denies tongue swelling Physical Exam Vital Signs: Last Vital Signs Pulse 58 01/13/23 15:07 BP 112/62 01/13/23 15:07 BMI result Body Mass Index 30.0 Const General: cooperative, no acute distress, well developed and well groomed Nutritional Appearance: well nourished and obese Orientation/consciousness: oriented to person, oriented to place and oriented to time Limitations: No language barrier HEENT Head: Yes normocephalic and Yes atraumatic Eyes General: appearance normal, both eyes and all related structures Pupils: Equal, round and reactive pupils present Neck Neck: Yes normal visual inspection and Yes no lymphadenopathy Thyroid: Thyroid normal Resp Effort & Inspection: normal respiratory effort and able to speak in complete sentences Auscultation: clear to auscultation bilaterally Cardio Rate: regular rate Rhythm: regular rhythm Heart sounds: Normal, physiologic split S2 sound present Peripheral pulses: radial pulses present and posterior tibial pulses present GI Inspection: No distended, No Abdominal panniculus present and Yes obesity Palpation (GI): Soft to palpation, nontender, no guarding, not rigid and No hepatosplenomegaly present Percussion: Yes normal to percussion Auscultation: normal bowel sounds Rectal Exam - Female: deferred Skin General skin exam: no rashes or lesions noted, turgor normal, skin not dry, no jaundice, No spider nevi and no striae Rashes: no rashes Nails: normal Neuro General: oriented to person, oriented to place and oriented to time Cranial nerves: Yes Equal, round and reactive pupils present and Yes Normal hearing present Speech: No Abnormal speech present Extrem General: Yes normal to inspection, No clubbing, No cyanosis and No edema Psych Appearance: grossly normal and well kempt Mental Status: mental status grossly normal Speech and movement: Normal speech and movement present Affect: normal affect Attitude: cooperative Thought process: Normal thought process present and not confabulating Thought content: Normal thought content present Insight: Limited insight present (Psych) Judgement: Limited judgement present (Psych) Assessment & Plan Assessment & Plan (1) GERD (gastroesophageal reflux disease): Comment: Controlled with simethicone and Tums Code(s): K21.9 - Gastro-esophageal reflux disease without esophagitis Plan: She has been noticing diarrhea about twice a month, this will last only a day or so. I ask her to keep a food diary and a menses diary to see if she can make connections. She does note this happens around her menses. She continues on her simethicone and tums. 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 I advise her to eat smaller, more frequent meals and its okay to drink a 5 hour energy shot if only once a day as she reports (she likes this better than coffee which upsets her stomach.). ROV 6 mos. (2) Abdominal bloating: Code(s): R14.0 - Abdominal distension (gaseous) Coding Level of Care Code Est Pt Level 3 (20326) Diagnoses GERD (gastroesophageal reflux disease) K21.9 Abdominal bloating R14.0
[2023-01-13 15:07] VITALS: BP 112/62; PULSE 58
== END 2023-01-13 15:38 | disposition home or self-care (01) ==
PROVIDERS: Visit Provider Nurse Practitioner
DX: K21.9 Gastro-esophageal reflux disease without esophagitis (principal); R14.0 Abdominal distension (gaseous)
CPT/HCPCS: 99213

== ENCOUNTER → 2023-01-13 14:57 | Outpatient (BNVA) | payer SELFPAY | PROVIDERS: Visit Provider Nurse Practitioner | DX: K21.9 Gastro-esophageal reflux disease without esophagitis (principal); R14.0 Abdominal distension (gaseous) | CPT/HCPCS: 99212 ==

== ENCOUNTER 2023-07-14 14:53 | Outpatient (AMB) | payer OTHER, SELFPAY ==
[2023-07-14 15:05] VITALS: BP 132/66; PULSE 62; BMI 30.1
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
== END 2023-07-14 15:29 | disposition home or self-care (01) ==
PROVIDERS: PCP Internal Medicine; Visit Provider Nurse Practitioner
DX: K21.9 Gastro-esophageal reflux disease without esophagitis (principal); R14.0 Abdominal distension (gaseous)
CPT/HCPCS: 99213

== ENCOUNTER → 2023-07-14 14:53 | Outpatient (BNVA) | payer OTHER, SELFPAY | PROVIDERS: PCP Internal Medicine; Visit Provider Nurse Practitioner | DX: K21.9 Gastro-esophageal reflux disease without esophagitis (principal); R14.0 Abdominal distension (gaseous) | CPT/HCPCS: 99212 ==

== ENCOUNTER 2023-11-14 12:57 | Outpatient (REF) | payer OTHER, SELFPAY ==
[2023-11-17 04:44] LABS: HPV mRNA E6/E7 rflx Not Detected (Not Detected)
== END 2023-11-14 12:58 | disposition home or self-care (01) ==
LOC: HO.LNP 12:57
PROVIDERS: PCP Internal Medicine; Visit Provider Advanced Practice Midwife
DX: Z01.419 Encounter for gynecological examination (general) (routine) without abnormal findings (principal); Z20.2 Contact with and (suspected) exposure to infections with a predominantly sexual mode of transmission
CPT/HCPCS: 87624; 88142; 99395

== ENCOUNTER 2023-11-14 12:57 | Outpatient (AMB) | payer OTHER, SELFPAY ==
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
[2023-11-14 13:02] VITALS: BP 122/80; BMI 29.7
== END 2023-11-14 14:16 | disposition home or self-care (01) ==
PROVIDERS: PCP Internal Medicine; Visit Provider Advanced Practice Midwife
DX: Z01.419 Encounter for gynecological examination (general) (routine) without abnormal findings (principal)
CPT/HCPCS: 99395

== ENCOUNTER 2023-11-14 13:53 | Outpatient (REF) | payer OTHER, SELFPAY ==
[2023-11-14 18:00] LABS: CT PCR NOT DETECTED (Not Detect.); NG PCR NOT DETECTED (Not Detect.)
[2023-11-15 08:31] LABS: HBc Num1 0.19 S/CO (0.00-0.79); HIV AB/AG Nonreactive (Nonreactive); HIV Num 1 0.05 S/CO (0.00-0.99); Hepatitis B Core Antibody Nonreactive (Nonreactive); ~HepC Num1 0.08 S/CO (0.00-0.79); ~Hepatitis C Antibody Nonreactive (Nonreactive)
[2023-11-15 08:36] LABS: Syphilis Screen Nonreactive (Nonreactive)
[2023-11-15 10:47] LABS: Bacterial Vaginosis PCR NEGATIVE (Negative); Candida Group PCR NOT DETECTED (Not Detect); Candida glab krusei PCR NOT DETECTED (Not Detect); Trichomonas vaginalis PCR NOT DETECTED (Not Detect)
== END 2023-11-14 13:54 | disposition home or self-care (01) ==
LOC: HO.LAB 13:53
PROVIDERS: PCP Internal Medicine; Visit Provider Advanced Practice Midwife
DX: Z20.2 Contact with and (suspected) exposure to infections with a predominantly sexual mode of transmission (principal)
CPT/HCPCS: 0352U; 0353U; 86704; 86780; 86803; 87389

== ENCOUNTER 2023-12-25 14:14 | Outpatient (AMB) | payer OTHER, SELFPAY ==
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
[2023-12-25 14:19] VITALS: BP 118/72; BMI 29.9
== END 2023-12-25 14:44 | disposition home or self-care (01) ==
PROVIDERS: PCP Internal Medicine; Visit Provider Internal Medicine
DX: Z00.00 Encounter for general adult medical examination without abnormal findings (principal); R00.0 Tachycardia, unspecified
CPT/HCPCS: 99213; 99395

== ENCOUNTER → 2024-02-07 15:04 | Outpatient (REF) | payer OTHER, SELFPAY ==
--- NOTE | 2024-02-07 15:07 | ECG_ITS ---
Test Reason : TACHYCARDIA Blood Pressure : / mmHG Vent. Rate : 064 BPM Atrial Rate : 064 BPM P-R Int : 168 ms QRS Dur : 162 ms QT Int : 454 ms P-R-T Axes : 042 -26 036 degrees QTc Int : 468 ms Normal sinus rhythm Left bundle branch block Abnormal ECG When compared with ECG of 07-OCT-2021 22:31, QRS duration has increased Minimal criteria for Septal infarct are no longer Present T wave inversion no longer evident in Anterior leads Referred By: Michelle Cruz Electronically Signed By:BARBER ENCISO
--- NOTE | 2024-02-07 15:07 | HM_ITS ---
* Total monitoring time 1 day. * Underlying rhythm is sinus with an average rate of 74/Min. * Rare supraventricular ectopy. * No significant pauses or AV blocks. * No patient markers or diary events. MTDD
== END ==
LOC: HO.CARD 15:04
PROVIDERS: PCP Internal Medicine; Visit Provider Internal Medicine
DX: R00.0 Tachycardia, unspecified (principal)
CPT/HCPCS: 93005; 93225

== ENCOUNTER → 2024-02-07 15:07 | Outpatient (BNV) | payer OTHER, SELFPAY | PROVIDERS: PCP Internal Medicine; Visit Provider Internal Medicine | DX: I47.10 Supraventricular tachycardia, unspecified (principal) | CPT/HCPCS: 93227 ==

== ENCOUNTER → 2024-02-09 16:22 | Outpatient (AMB) | payer OTHER, SELFPAY ==
--- NOTE | 2024-02-09 16:25 | A.OFFVIS_ITS ---
Vital Signs 02/09/24 16:26 Height 5 ft 3 in Weight 149 lb 14.629 oz BMI 26.6 BP 114/69 Blood Pressure Location Lt brachial Position Sitting Intake Visit Reasons: 6 months follow up Intake Note: Nessa presents in the office as a 6 months follow up. CC: Pt states that she had diarrhea for a month and some nausea around mid January. She reports a lot of bloating. Denies other GI symptoms. 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 She just recovered from a stomach virus! She had N/V/D for 2 days. She had to stop the Red Bulls r/t tachycardia. She will occasionally have 1/2 of a 5 hour energy shot and this helps her better than coffee. She continues using the simethicone and TUMS prn. Medications: Refilled simethicone after meals 180 mg PO BID 30 days 60 caps 6RF K21.9 - Gastro-esophageal reflux disease without esophagitis, R14.0 - Abdominal distension (gaseous) calcium carbonate (Tums E-X) 300 mg PO TID PRN 90 tabs 6RF Indigestion K21.9 - Gastro-esophageal reflux disease without esophagitis TODAY'S VISIT She has been rx'ed Donn, but has not started it yet. WE discuss the GI s/e to watch for. She had an episode of diarrhea for 2 weeks that resolved on it own. She is doing well with her simethicone and TUMS. ROV 6 mos. [facility] Medical History (Updated 02/09/24 @ 16:32 by REGINALD Barnhart) Encounter for well woman exam with routine gynecological exam Physical exam Heavy menstrual bleeding History of painful menstruation Encounter for annual routine gynecological examination First degree burn ASCUS (atypical squamous cells of undetermined significance) on gynecologic Papanicolaou smear complicating , antepartum Palpitations Adenomyosis Dysmenorrhea Abdominal bloating Tachycardia Chronic fatigue Right knee pain Dyslipidemia Shortness of breath Surgical History History of loop electrical excision procedure (LEEP) Family History Father No problems noted. 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 Current occupational exposures/hazards: No Sexual orientation: Straight/Heterosexual Gender identity: Female Cognitive needs: No Hearing needs: No Vision needs: No Female Reproductive History Menstrual Age of Menarche: 13 Review of Systems Const Denies fatigue, Denies fever(s), Denies night sweats, Denies poor appetite and Denies weight loss ENT Reports Normal hearing present, Denies dental pain, Denies dysphagia, Denies hearing loss, Denies mouth pain, Denies odynophagia, Denies throat swelling, Denies tongue swelling and Reports other (Dentition adequate) Card Reports no additional complaints Resp Reports no additional complaints GI Details: Denies abdominal pain, Denies melena, Denies bloating, Denies hematochezia, Denies constipation, Denies GI cramping, Denies dysphagia, Denies excessive flatus, Denies early satiety, Reports heartburn, Denies diarrhea, Denies nausea, Denies odynophagia, Denies vomiting and Denies hematemesis Skin/Breast Denies pruritus, Denies lesions, Denies rash and Denies jaundice Neuro Reports Normal hearing present and Denies Abnormal speech present Endo Denies fatigue Aller/Immun Denies throat swelling and Denies tongue swelling Physical Exam Vital Signs: BMI result Body Mass Index 26.6 Const General: cooperative, no acute distress, well developed and well groomed Nutritional Appearance: average body habitus and well nourished Orientation/consciousness: oriented to person, oriented to place and oriented to time Limitations: No language barrier HEENT Head: Yes normocephalic and Yes atraumatic Eyes General: appearance normal, both eyes and all related structures Pupils: Equal, round and reactive pupils present Neck Neck: Yes normal visual inspection and Yes no lymphadenopathy Thyroid: Thyroid normal Resp Effort & Inspection: normal respiratory effort and able to speak in complete sentences Auscultation: clear to auscultation bilaterally Cardio Rate: regular rate Rhythm: regular rhythm Heart sounds: Normal, physiologic split S2 sound present Peripheral pulses: radial pulses present and posterior tibial pulses present GI Inspection: No distended and No Abdominal panniculus present Palpation (GI): Soft to palpation, nontender, no guarding, not rigid and No hepatosplenomegaly present Percussion: Yes normal to percussion Auscultation: normal bowel sounds Rectal Exam - Female: deferred Skin General skin exam: no rashes or lesions noted, turgor normal, skin not dry, no jaundice, No spider nevi and no striae Rashes: no rashes Nails: normal Neuro General: oriented to person, oriented to place and oriented to time Cranial nerves: Yes Equal, round and reactive pupils present and Yes Normal hearing present Speech: No Abnormal speech present Extrem General: Yes normal to inspection, No clubbing, No cyanosis and No edema Psych Appearance: grossly normal and well kempt Mental Status: mental status grossly normal Speech and movement: Normal speech and movement present Affect: normal affect Attitude: cooperative Thought process: Normal thought process present and not confabulating Thought content: Normal thought content present Insight: Limited insight present (Psych) Judgement: Limited judgement present (Psych) Assessment & Plan Assessment & Plan (1) GERD (gastroesophageal reflux disease): Comment: Controlled with simethicone and Tums Code(s): K21.9 - Gastro-esophageal reflux disease without esophagitis Category: Medical (2) Abdominal bloating: Code(s): R14.0 - Abdominal distension (gaseous) Category: Medical Plan She has been rx'ed Wegovy, but has not started it yet. WE discuss the GI s/e to watch for. She had an episode of diarrhea for 2 weeks that resolved on it own. She is doing well with her simethicone and TUMS. ROV 6 mos. Medications: Refilled simethicone after meals 180 mg PO BID 30 days 60 caps 6RF K21.9 - Gastro-esophageal reflux disease without esophagitis, R14.0 - Abdominal distension (gaseous) calcium carbonate (Tums E-X) 300 mg PO TID PRN 90 tabs 6RF Indigestion K21.9 - Gastro-esophageal reflux disease without esophagitis Coding Level of Care Code Est Pt Level 3 (10314) Diagnoses GERD (gastroesophageal reflux disease) K21.9 Abdominal bloating R14.0
[2024-02-09 16:26] VITALS: BP 114/69; BMI 26.6
== END ==
PROVIDERS: PCP Internal Medicine; Visit Provider Nurse Practitioner
DX: K21.9 Gastro-esophageal reflux disease without esophagitis (principal); R14.0 Abdominal distension (gaseous)
CPT/HCPCS: 99213

== ENCOUNTER → 2024-02-09 16:22 | Outpatient (BNVA) | payer OTHER, SELFPAY | PROVIDERS: PCP Internal Medicine; Visit Provider Nurse Practitioner | DX: K21.9 Gastro-esophageal reflux disease without esophagitis (principal); R19.7 Diarrhea, unspecified; R14.0 Abdominal distension (gaseous) | CPT/HCPCS: 99212 ==

== ENCOUNTER 2024-03-25 13:43 | Outpatient (AMB) | payer OTHER, SELFPAY ==
--- NOTE | 2024-03-25 14:12 | MHC.OFFVIS ---
Vital Signs 03/25/24 14:13 Height 5 ft 3 in Weight 154 lb 5.177 oz BMI 27.3 BP 120/72 Blood Pressure Location Lt brachial Position Sitting Pulse 65 Intake Visit Reasons: fu holter monitor- also referral from [facility] Intake Note: Follow-up Holter results per pcp c/o palpitations when stressed Instrumentation Supervisor Required: No Allergies No Known Allergies Allergy (Verified 02/09/24 16:30) Medication List - Last Reconciled 03/25/24 by Peace Mcnally NP-C calcium carbonate (Tums E-X) 300 mg PO TID PRN simethicone 180 mg PO BID 30 days HPI HPI fu holter monitor- also referral from [facility]: Details: Nessa is a 38-year-old female with past medical history of hyperlipidemia, heart palpitations, chest pressure, IVCD on EKG who presents for follow-up. Her last prior visit to our office was 12/22/2021. Today she reports that she continues to notice heart palpitations. She describes that she can feel her heart going fast even when she is at rest. This is the same type of feeling that she has reported at prior visits. This symptom can occur randomly and resolves without specific treatment. She has not had any presyncope, syncope, falls. She will notice some chest pressure with this symptom. No exertional chest discomfort. No shortness of breath, PND, orthopnea or edema. She is not on any cardiac medications. [facility] Medical History (Updated 03/25/24 @ 16:48 by Peace Mcnally, [place]-C) Palpitations Encounter for well woman exam with routine gynecological exam Physical exam Heavy menstrual bleeding History of painful menstruation Encounter for annual routine gynecological examination First degree burn ASCUS (atypical squamous cells of undetermined significance) on gynecologic Papanicolaou smear complicating , antepartum Adenomyosis Dysmenorrhea Abdominal bloating Tachycardia Chronic fatigue Right knee pain Dyslipidemia Shortness of breath Surgical History History of loop electrical excision procedure (LEEP) Family History Father No problems noted. 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 Current occupational exposures/hazards: No Sexual orientation: Straight/Heterosexual Gender identity: Female Cognitive needs: No Hearing needs: No Vision needs: No Female Reproductive History Menstrual Age of Menarche: 13 Review of Systems Const All systems reviewed & are unremarkable except as noted in HPI and below Denies chills, Denies fatigue, Denies fever(s), Denies frequent falls, Denies weakness, Denies weight gain and Denies weight loss ENT Denies dizziness Card Denies chest pain, Reports rapid heart rate, Denies leg edema, Denies lightheadedness, Reports palpitations, Denies dyspnea, Denies dyspnea on exertion, Denies orthopnea and Denies other (loss of consciousness) Resp Denies cough, Denies dyspnea and Denies dyspnea on exertion GI Denies hematochezia and Denies change in stool character Musc Denies abnormal gait, Denies muscle weakness, Denies numbness, Denies radiating pain into limb and Denies tingling Neuro Denies abnormal gait, Denies dizziness, Denies frequent falls, Denies numbness, Denies tingling and Denies weakness Endo Denies fatigue and Reports palpitations Physical Exam Vital Signs: Last Vital Signs Pulse 65 03/25/24 14:13 BP 120/72 03/25/24 14:13 BMI result Body Mass Index 27.3 Const General: cooperative, healthy appearing, comfortable and no acute distress Orientation/consciousness: patient oriented x3 Neck Neck: Yes normal visual inspection and Yes no JVD Resp Effort & Inspection: normal respiratory effort Auscultation: clear to auscultation bilaterally, no crackles, no rales, no rhonchi and no wheezes Cardio Jugular venous distension: no JVD Rate: regular rate Rhythm: regular rhythm Heart sounds: S1 normal heart sound present, S2 normal heart sound present, no murmurs and no rubs Neuro General: patient oriented x3 Extrem General: Yes normal to inspection, No no pedal edema and No calf tenderness Psych Appearance: grossly normal Mental Status: mental status grossly normal Speech and movement: Normal speech and movement present Office Procedures EKG Details: Today, read by me, normal sinus rhythm, left bundle branch block, rate 65, QTC 472 millisecond [id number], Complete Assessment & Plan Assessment & Plan (1) Palpitations: Code(s): R00.2 - Palpitations Category: Medical Plan: Admit for heart palpitations in October 2021. She was thought to have had SVT prior to arrival based on clinical description of symptoms. EKG did show sinus rhythm with IVCD. Troponins were elevated up to 147. Sharon to be rate related troponin release as opposed to ACS low cardiac risk profile. She did have an exercise stress test done 10/08/2021 where she exercised 6 minutes and reported heart palpitations with an elevated heart rate, she did develop a rate-related left bundle branch block, nondiagnostic for ischemia. An echocardiogram had been done on 09/09/2020 showing EF 55-60%, mild MR. When admitted a limited echo was done to reassess EF showing no change. She did undergo a nuclear stress test on 10/10/21 however the results were suboptimal. She had a CTA of the coronary arteries done on 12/31/2021 showing no evidence of hemodynamically significant coronary artery disease. She was not seen in the office between 12/22/2021 and today. At this time she continues to report intermittent heart palpitations. EKG done today shows sinus rhythm with left bundle branch block, rate 65. Will order a cardiac event monitor to further evaluate for arrhythmia, possible SVT. Reviewed ongoing reduction in stimulants, activity as tolerated. Vagal maneuvers discussed. ED care if ever needed for symptoms. Cardiology follow-up 3 months, sooner if needed. (2) Tachycardia: Code(s): R00.0 - Tachycardia, unspecified Category: Medical Plan: Suspected SVT though no EKG or strips confirming. On no medical management at present. (3) Left bundle branch block (LBBB): Comment: rate related - seen on stress test Code(s): I44.7 - Left bundle-branch block, unspecified Category: Medical Plan: Previously noted to have a rate related left bundle branch block. EKG done today is showing left bundle branch block. CTA of the coronary showed no significant CAD. Plan Time spent on chart review, documentation, interview and assessment Orders: Orders ECG 30 day event monitor 03/25/24 R00.2 - Palpitations Coding Level of Care Code Est Pt Level 4 (72815) Complex EM visit Add On G2211 Diagnoses Palpitations R00.2 Tachycardia R00.0 Left bundle branch block (LBBB) I44.7 CPT Codes EKG - CPT: [id number], Complete ([id number]) Time Spent (min) 28
[2024-03-25 14:13] VITALS: BP 120/72; PULSE 65; BMI 27.3
== END 2024-03-25 15:04 | disposition home or self-care (01) ==
PROVIDERS: PCP Internal Medicine; Visit Provider Nurse Practitioner Family
DX: R94.31 Abnormal electrocardiogram [ECG] [EKG] (principal)
CPT/HCPCS: 93010; 99214; G2211

== ENCOUNTER → 2024-03-25 13:43 | Outpatient (BNVA) | payer OTHER, SELFPAY | PROVIDERS: PCP Internal Medicine; Visit Provider Nurse Practitioner Family | DX: I44.7 Left bundle-branch block, unspecified (principal); R00.2 Palpitations; E78.5 Hyperlipidemia, unspecified; R00.0 Tachycardia, unspecified | CPT/HCPCS: 93005; 99212 ==

== ENCOUNTER → 2024-04-24 14:03 | Outpatient (REF) | payer OTHER, SELFPAY | LOC: HO.CARD 14:03 | PROVIDERS: PCP Internal Medicine; Visit Provider Nurse Practitioner Family | DX: R00.2 Palpitations (principal) | CPT/HCPCS: 93270 ==

== ENCOUNTER → 2024-04-24 14:08 | Outpatient (BNV) | payer OTHER, SELFPAY | PROVIDERS: PCP Internal Medicine; Visit Provider Internal Medicine Cardiovascular Disease | DX: I48.91 Unspecified atrial fibrillation (principal) | CPT/HCPCS: 93272 ==

== ENCOUNTER 2024-06-27 14:09 | Outpatient (AMB) | payer OTHER, SELFPAY ==
[2024-06-27 14:43] VITALS: BP 114/60; PULSE 64; BMI 25.4
--- NOTE | 2024-06-27 14:43 | A.OFFVIS_ITS ---
Vital Signs 06/27/24 14:43 Height 5 ft 6 in Weight 157 lb 6.561 oz BMI 25.4 BP 114/60 Blood Pressure Location Lt brachial Position Sitting Pulse 64 Pulse Source Pulse Oximeter Intake Visit Reasons: 3 mth f/up event Manual Tester Required: No Allergies No Known Allergies Allergy (Verified 06/27/24 14:51) Medication List - Last Reconciled 06/27/24 by Peace Mcnally NP-C calcium carbonate (Tums E-X) 300 mg PO TID PRN metoprolol succinate ER 25 mg PO DAILY simethicone 180 mg PO BID 30 days HPI HPI 3 mth f/up event: Details: Nessa is a 38-year-old female with past medical history of hyperlipidemia, heart palpitations, chest pressure, IVCD on EKG who recently wore cardiac event monitor which did show paroxysmal atrial fibrillation. She was started on metoprolol and now presents for follow-up. Today she reports that since starting metoprolol she has noticed much less heart palpitations. She actually has not felt any in the last 2-3 weeks. Prior to that she was noticing rapid heartbeats that occurred even at rest with irregularity to her heart rhythm. Her palpitations could last seconds to at most 1 hour before resolving. She has no chest discomfort at rest or with activity. No shortness of breath, PND, orthopnea or edema. No lightheadedness, presyncope, syncope, falls. She is considering a in the next few years. [facility] Medical History Palpitations Encounter for well woman exam with routine gynecological exam Physical exam Heavy menstrual bleeding History of painful menstruation Encounter for annual routine gynecological examination First degree burn ASCUS (atypical squamous cells of undetermined significance) on gynecologic Papanicolaou smear complicating , antepartum Adenomyosis Dysmenorrhea Abdominal bloating Tachycardia Chronic fatigue Right knee pain Dyslipidemia Shortness of breath Surgical History History of loop electrical excision procedure (LEEP) Family History Father No problems noted. 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 Current occupational exposures/hazards: No Sexual orientation: Straight/Heterosexual Gender identity: Female Cognitive needs: No Hearing needs: No Vision needs: No Female Reproductive History Menstrual Age of Menarche: 13 Review of Systems Const All systems reviewed & are unremarkable except as noted in HPI and below ENT Denies dizziness Card Denies chest pain, Denies chest pain at rest, Denies chest pain with activity, Denies rapid heart rate, Denies pedal edema, Denies edema, Denies leg edema, Denies lightheadedness, Denies palpitations, Denies dyspnea, Denies dyspnea on exertion and Denies orthopnea Resp Denies cough, Denies dyspnea and Denies dyspnea on exertion GI Denies hematochezia and Denies change in stool character Musc Denies abnormal gait, Denies limited range of motion, Denies muscle cramps, Denies muscle weakness, Denies numbness, Denies radiating pain into limb, Denies stiffness and Denies tingling Neuro Denies abnormal gait, Denies dizziness, Denies numbness and Denies tingling Endo Denies palpitations Physical Exam Vital Signs: Last Vital Signs Pulse 64 06/27/24 14:43 BP 114/60 06/27/24 14:43 BMI result Body Mass Index 25.4 Const General: cooperative, healthy appearing, comfortable and no acute distress Orientation/consciousness: patient oriented x3 Neck Neck: Yes normal visual inspection Resp Effort & Inspection: normal respiratory effort Auscultation: clear to auscultation bilaterally, no crackles, no rales, no rhonchi and no wheezes Cardio Rate: regular rate Rhythm: regular rhythm Heart sounds: S1 normal heart sound present, S2 normal heart sound present, no murmurs and no rubs Neuro General: patient oriented x3 Extrem General: Yes normal to inspection, No no pedal edema and No calf tenderness Psych Appearance: grossly normal Mental Status: mental status grossly normal Speech and movement: Normal speech and movement present Assessment & Plan Assessment & Plan (1) Palpitations: Code(s): R00.2 - Palpitations Category: Medical Plan: Admit for heart palpitations in October 2021. She was thought to have had SVT prior to arrival based on clinical description of symptoms. EKG did show sinus rhythm with IVCD. Troponins were elevated up to 147. Trion to be rate related troponin release as opposed to ACS low cardiac risk profile. She did have an exercise stress test done 10/08/2021 where she exercised 6 minutes and reported heart palpitations with an elevated heart rate, she did develop a rate-related left bundle branch block, nondiagnostic for ischemia. An echocardiogram had been done on 09/09/2020 showing EF 55-60%, mild MR. When admitted a limited echo was done to reassess EF showing no change. She did undergo a nuclear stress test on 10/10/21 however the results were suboptimal. She had a CTA of the coronary arteries done on 12/31/2021 showing no evidence of hemodynamically significant coronary artery disease. She was not seen in the office between 12/22/2021 and 03/25/2024. At this time she continues to report intermittent heart palpitations. EKG done last visit shows sinus rhythm with left bundle branch block, rate 65. Cardiac event monitor was ordered to evaluate for arrhythmia, it showed sinus rhythm with average heart rate 78, paroxysmal atrial fibrillation, burden 1%, max rate 178, frequent PVCs, 1.1%. While she was wearing the event monitor the strips were reviewed and she was notified of the PAF. She was started on metoprolol XL 25 mg daily. Diagnosis of atrial fibrillation discussed with her. Today she reports that she has been noticing less heart palpitations on the metoprolol. She actually has had none in the last 2-3 weeks. No concern for sleep apnea. She does not drink alcohol. Will update an echocardiogram. Discussed atrial fibrillation ablation with her. She will think about this and get back to me. She is considering a in the next couple years. Current CHADS-VASc score 1, female. Anticoagulation not indicated presently. If she agrees will refer her for ablation. Reviewed ongoing reduction in stimulants, activity as tolerated. ED care if ever needed for symptoms. Cardiology follow-up 3 months, sooner if needed. (2) Tachycardia: Code(s): R00.0 - Tachycardia, unspecified Category: Medical Plan: Previously Suspected SVT though no EKG or strips confirming. -now cardiac event monitor shows paroxysmal atrial fibrillation. (3) Left bundle branch block (LBBB): Comment: rate related - seen on stress test Code(s): I44.7 - Left bundle-branch block, unspecified Category: Medical Plan: Previously noted to have a rate related left bundle branch block. EKG done last visit is showing left bundle branch block. CTA of the coronary showed no significant CAD. (4) Atrial fibrillation: Code(s): I48.91 - Unspecified atrial fibrillation Category: Medical Plan: New finding as above Plan Time spent on chart review, documentation, interview and assessment Orders: Orders CA echo transthoracic complete Today I48.91 - Unspecified atrial fibrillation Medications: Refilled metoprolol succinate ER 25 mg PO DAILY 90 tabs 1RF Coding Level of Care Code Est Pt Level 4 (06831) Complex EM visit Add On G2211 Diagnoses Palpitations R00.2 Tachycardia R00.0 Left bundle branch block (LBBB) I44.7 Atrial fibrillation I48.91 Time Spent (min) 32
== END 2024-06-27 15:16 | disposition home or self-care (01) ==
PROVIDERS: PCP Internal Medicine; Visit Provider Nurse Practitioner Family
DX: R00.2 Palpitations (principal); R00.0 Tachycardia, unspecified; I44.7 Left bundle-branch block, unspecified; I48.91 Unspecified atrial fibrillation
CPT/HCPCS: 99214; G2211

== ENCOUNTER → 2024-06-27 14:09 | Outpatient (BNVA) | payer OTHER, SELFPAY | PROVIDERS: PCP Internal Medicine; Visit Provider Nurse Practitioner Family | DX: I44.7 Left bundle-branch block, unspecified (principal); I48.91 Unspecified atrial fibrillation; R00.2 Palpitations; R00.0 Tachycardia, unspecified | CPT/HCPCS: 99212 ==

== ENCOUNTER → 2024-07-04 13:46 | Outpatient (REF) | payer OTHER, SELFPAY ==
--- NOTE | 2024-07-04 13:51 | CA_ITS ---
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 The calculated ejection fraction is 59% by biplane method. - There is mild mitral valve regurgitation. Findings Left Ventricle Normal left ventricular cavity size. There is normal left ventricular wall thickness. The left ventricular systolic function is normal. The calculated ejection fraction is 59% by biplane method. There is no evidence of regional wall motion abnormalities. Diastolic function is normal for age. LV peak GLS -20.2% Right Ventricle Normal right ventricular cavity size and systolic function. Atria Both atria are normal in size. Aortic Valve There is a normal trileaflet aortic valve. There is no aortic valve stenosis. There is no aortic valve regurgitation. Mitral Valve There is mild anterior and posterior mitral leaflet thickening. There is mild mitral valve regurgitation. There is no mitral valve stenosis. Pulmonic Valve The pulmonic valve is likely normal. There is trace pulmonic valve regurgitation. Tricuspid Valve There is mild tricuspid valve regurgitation. There is no evidence of pulmonary hypertension. Great Vessels The asc aorta is normal in size. Venous The inferior vena cava is normal in size and collapses greater than 50% with inspiration. Pericardium/Pleural There is no evidence of pericardial effusion. Prior Study Comparison No significant change compared to prior study dated: 10/08/2021. Measurements 2D Linear Measurements IVSd: 0.76 0.6-0.9/0.6-1.0 cm LVIDd: 4.20 3.9-5.3/4.2-5.9 cm LVIDd Index: 2.49 2.4-3.2/2.2-3.1 cm/m2 LVIDs: 3.01 2.0-3.6 cm LVPWd: 0.79 0.7-1.1 cm LA Diam: 3.30 2.7-3.8/3.0-4.0 cm LAIDs Index: 1.95 1.5-2.3 cm/m2 LV Mass: 120.87 67-162/88-224 g LV Mass Index: 71.52 43-95/49-115 g/m2 LVOT Diam: 1.90 3.0+(-)1.3 cm 2D Volumes LA Vol: 25.30 2D Systolic Function EF 4C: 56.60 >55% EF 2C: 61.80 >55% EF BiP: 59.30 >55% Mitral Valve MV Pk E: 0.96 MV PK A: 0.48 MV Decel Time: 194.00 E/A: 2.00 E'Lateral: 10.20 E'Medial: 7.83 E/E' Med: 12.30 E/E' Lat: 9.40 PHT: 57.00 MVA PHT: 3.86 Decel [place]: 4.96 Aortic Valve AoV Pk James: 1.51 AoV Mn James: 1.02 AoV VTI: 0.32 AoV Pk Grad: 9.00 Aov Mn Grad: 5.00 JAZMINE Cont.VTI: 1.88 LVOT LVOT Pk James: 1.02 LVOT Mn James: 0.70 LVOT VTI: 0.21 LVOT Pk Grad: 4.00 LVOT Mn Grad: 2.00 LVOT Diam: 1.90 LVOT Area: 2.84 Diastolic Function MV Pk E: 0.96 MV Pk A: 0.48 E/A: 2.00 E'Medial: 7.83 E/E' Med: 12.30 E' Laterial: 10.20 E/E' Lat: 9.40 Right Ventricle TAPSE (mm): 22.40 TVS' James: 10.10 Tricuspid Valve TR Pk James: 1.78 TR Pk Grad: 13.00 RA Press: 3.00 RVSP: 16.00 Great Vessels Aorta Sinus of Valsalva: 2.58 2.0-3.5 cm Ao Asc: 2.50 2.1-3.4 cm Ao Arch: 2.20 Updated in Other Vendor System with Status of Final Mauricio Valdez MD electronically signed on 07/06/2024 11:46:28 AM with status of Final
== END ==
LOC: HO.CARD 13:46
PROVIDERS: Visit Provider Nurse Practitioner Family
DX: I48.91 Unspecified atrial fibrillation (principal)
CPT/HCPCS: 93306

== ENCOUNTER 2024-09-26 13:56 | Outpatient (AMB) | payer OTHER, SELFPAY ==
[2024-09-26 14:03] VITALS: BP 114/72; PULSE 69; BMI 24.8
--- NOTE | 2024-09-26 14:03 | MHC.OFFVIS ---
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 She now presents for follow-up. Today she reports that she has had 3 episodes of heart palpitations since her last visit in June. The episodes ranged 15 to 50 minutes. She has symptoms of shortness of breath, palpitations, lightheadedness, chest pressure with palpitations. She has no chest discomfort brought on by physical activity. No shortness of breath at other times, PND, orthopnea or edema. No presyncope, syncope, falls. She is considering a in the next few years. [facility] Medical History Palpitations Encounter for well woman exam with routine gynecological exam Physical exam Heavy menstrual bleeding History of painful menstruation Encounter for annual routine gynecological examination First degree burn ASCUS (atypical squamous cells of undetermined significance) on gynecologic Papanicolaou smear complicating , antepartum Adenomyosis Dysmenorrhea Abdominal bloating Tachycardia Chronic fatigue Right knee pain Dyslipidemia Shortness of breath Surgical History History of loop electrical excision procedure (LEEP) Family History Father No problems noted. 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 Current occupational exposures/hazards: No Sexual orientation: Straight/Heterosexual Gender identity: Female Cognitive needs: No Hearing needs: No Vision needs: No Female Reproductive History Menstrual Age of Menarche: 13 Review of Systems Const All systems reviewed & are unremarkable except as noted in HPI and below ENT Denies dizziness Card Details: Palpitation Denies chest pain, Denies chest pain at rest, Denies chest pain with activity, Denies rapid heart rate, Denies pedal edema, Denies edema, Denies leg edema, Denies lightheadedness, Denies palpitations, Denies dyspnea, Denies dyspnea on exertion and Denies orthopnea Resp Denies cough, Denies dyspnea and Denies dyspnea on exertion GI Denies hematochezia and Denies change in stool character Musc Denies abnormal gait, Denies limited range of motion, Denies muscle cramps, Denies muscle weakness, Denies numbness, Denies radiating pain into limb, Denies stiffness and Denies tingling Neuro Denies abnormal gait, Denies dizziness, Denies numbness and Denies tingling Endo Denies palpitations Physical Exam Vital Signs: Last Vital Signs Pulse 69 09/26/24 14:03 BP 114/72 09/26/24 14:03 BMI result Body Mass Index 24.8 Const General: cooperative, healthy appearing, comfortable and no acute distress Orientation/consciousness: patient oriented x3 Neck Neck: Yes normal visual inspection Resp Effort & Inspection: normal respiratory effort Auscultation: clear to auscultation bilaterally, no crackles, no rales, no rhonchi and no wheezes Cardio Rate: regular rate Rhythm: regular rhythm Heart sounds: S1 normal heart sound present, S2 normal heart sound present, no murmurs and no rubs Neuro General: patient oriented x3 Extrem General: Yes normal to inspection, No no pedal edema and No calf tenderness Psych Appearance: grossly normal Mental Status: mental status grossly normal Speech and movement: Normal speech and movement present Assessment & Plan Assessment & Plan (1) Atrial fibrillation: Code(s): I48.91 - Unspecified atrial fibrillation Category: Medical Plan: Newer finding of paroxysmal atrial fibrillation as seen on cardiac event monitor. She was put on metoprolol XL 25 mg daily with much improvement in her symptoms. Echocardiogram 07/04/2024 showed EF 59%, mild mitral regurgitation, both atria normal size. In the last 3 months she has had 3 breakthrough episodes but is not interested in further increasing her metoprolol dose. Discussed reduction in caffeinated beverages, maintaining good hydration, getting adequate rest. Chads Vasc score of 1, female. Anticoagulation currently not indicated. Again discussed ablation and she is now agreeable to meet with insulator technician. Will refer to [facility] EP. Informed she may take an additional metoprolol if she was to have prolonged AFib. Emergency care if needed. Cardiology follow-up in 3 months, sooner if needed. (2) Palpitations: Code(s): R00.2 - Palpitations Category: Medical Plan: Prior cardiac evaluation for palpitations, suspected SVT. She did have an exercise stress test done 10/08/2021 where she exercised 6 minutes and reported heart palpitations with an elevated heart rate, she did develop a rate-related left bundle branch block, nondiagnostic for ischemia. CTA of the coronary arteries done on 12/31/2021 showing no evidence of hemodynamically significant coronary artery disease. She was not seen in the office between 12/22/2021 and 03/25/2024 when she again is reporting heart palpitations. Cardiac findings as above show paroxysmal AFib. (3) Tachycardia: Code(s): R00.0 - Tachycardia, unspecified Category: Medical Plan: Previously Suspected SVT though no EKG or strips confirming. -now cardiac event monitor shows paroxysmal atrial fibrillation. (4) Left bundle branch block (LBBB): Comment: rate related - seen on stress test Code(s): I44.7 - Left bundle-branch block, unspecified Category: Medical Plan: Previously noted to have a rate related left bundle branch block. EKG done last visit is showing left bundle branch block. CTA of the coronary showed no significant CAD. Plan Time spent on chart review, documentation, interview and assessment Orders: Referrals Cardiac Electrophysiology Referral I44.7 - Left bundle-branch block, unspecified, I48.91 - Unspecified atrial fibrillation Coding Level of Care Code Est Pt Level 3 (51199) Complex EM visit Add On G2211 Diagnoses Atrial fibrillation I48.91 Palpitations R00.2 Tachycardia R00.0 Left bundle branch block (LBBB) I44.7 Time Spent (min) 24
== END 2024-09-26 14:56 | disposition home or self-care (01) ==
LOC: HO.HCS 13:57
PROVIDERS: PCP Internal Medicine; Visit Provider Nurse Practitioner Family
DX: I48.91 Unspecified atrial fibrillation (principal); R00.2 Palpitations; R00.0 Tachycardia, unspecified; I44.7 Left bundle-branch block, unspecified
CPT/HCPCS: 99213; G2211

== ENCOUNTER → 2024-09-26 13:56 | Outpatient (BNVA) | payer OTHER, SELFPAY | PROVIDERS: PCP Internal Medicine; Visit Provider Nurse Practitioner Family | DX: I48.91 Unspecified atrial fibrillation (principal); I44.7 Left bundle-branch block, unspecified; R00.2 Palpitations; R00.0 Tachycardia, unspecified | CPT/HCPCS: 99212 ==

== ENCOUNTER 2024-10-23 15:00 | Outpatient (AMB) | payer OTHER, SELFPAY ==
--- NOTE | 2024-10-23 15:12 | A.OFFVIS_ITS ---
Vital Signs 10/23/24 15:15 Height 5 ft 6 in Weight 157 lb 13.616 oz BMI 25.5 BP 109/53 L Blood Pressure Location Lt brachial Position Sitting Pulse 68 Pulse Source Pulse Oximeter Pulse Oximetry (%) 97 Oxygen Delivery Method Room Air Intake Visit Reasons: 6 month follow up abdom bloating Intake Note: Pt presents to the office today for a 6 month follow up abdominal bloating. Allergies No Known Allergies Allergy (Verified 10/23/24 15:15) HPI HPI 6 month follow up abdom bloating: Details: Assessment & Plan (1) GERD (gastroesophageal reflux disease): Comment: Controlled with simethicone and Tums Code(s): K21.9 - Gastro-esophageal reflux disease without esophagitis Category: Medical (2) Abdominal bloating: Code(s): R14.0 - Abdominal distension (gaseous) Category: Medical Plan She has been rx'ed Wegovy, but has not started it yet. WE discuss the GI s/e to watch for. She had an episode of diarrhea for 2 weeks that resolved on it own. She is doing well with her simethicone and TUMS. ROV 6 mos. Medications: Refilled simethicone after meals 180 mg PO BID 30 days 60 caps 6RF K21.9 - Gastro-esophageal reflux disease without esophagitis, R14.0 - Abdominal distension (gaseous) calcium carbonate (Tums E-X) 300 mg PO TID PRN 90 tabs 6RF Indigestion K21.9 - Gastro-esophageal reflux disease without esophagitis TODAY'S VISIT She continues to do well, but has been putting on some weight and having some post prandial bloating. We discuss possible causes and things to look for i.e. types of foods etc. She does feel relief after a BM, and she moves her bowels daily and she does NOT feels she has incomplete evacuation. We agree that if this becomes more of a problem she will return earlier, but in the meantime she should use her simethicone more aggressively and even consider something like BEANO. ROV 1 year. [facility] Medical History (Updated 10/23/24 @ 15:14 by REGINALD Barnhart) Palpitations Abnormal EKG Right knee pain Shortness of breath Elevated troponin Tachycardia Encounter for well woman exam with routine gynecological exam Physical exam Heavy menstrual bleeding History of painful menstruation Encounter for annual routine gynecological examination First degree burn ASCUS (atypical squamous cells of undetermined significance) on gynecologic Papanicolaou smear complicating , antepartum Adenomyosis Dysmenorrhea Abdominal bloating Chronic fatigue Dyslipidemia Surgical History History of loop electrical excision procedure (LEEP) Family History Father No problems noted. 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 Current occupational exposures/hazards: No Sexual orientation: Straight/Heterosexual Gender identity: Female Cognitive needs: No Hearing needs: No Vision needs: No Female Reproductive History Menstrual Age of Menarche: 13 Review of Systems Const Denies fatigue, Denies fever(s), Denies night sweats, Denies poor appetite, Reports weight gain and Denies weight loss ENT Reports Normal hearing present, Denies dental pain, Denies dysphagia, Denies hearing loss, Denies mouth pain, Denies odynophagia, Denies throat swelling, Denies tongue swelling and Reports other (Dentition adequate) Card Reports no additional complaints Resp Reports no additional complaints GI Details: Denies abdominal pain, Denies melena, Reports bloating, Denies hematochezia, Denies constipation, Denies GI cramping, Denies dysphagia, Denies excessive flatus, Denies early satiety, Reports heartburn, Denies diarrhea, Denies nausea, Denies odynophagia, Denies vomiting and Denies hematemesis Skin/Breast Denies pruritus, Denies lesions, Denies rash and Denies jaundice Neuro Reports Normal hearing present and Denies Abnormal speech present Endo Denies fatigue Aller/Immun Denies throat swelling and Denies tongue swelling Physical Exam Const General: cooperative, no acute distress, well developed and well groomed Nutritional Appearance: average body habitus and well nourished Orientation/consciousness: oriented to person, oriented to place and oriented to time Limitations: No language barrier HEENT Head: Yes normocephalic and Yes atraumatic Eyes General: appearance normal, both eyes and all related structures Pupils: Equal, round and reactive pupils present Neck Neck: Yes normal visual inspection and Yes no lymphadenopathy Thyroid: Thyroid normal Resp Effort & Inspection: normal respiratory effort and able to speak in complete sentences Auscultation: clear to auscultation bilaterally Cardio Rate: regular rate Rhythm: regular rhythm Heart sounds: Normal, physiologic split S2 sound present Peripheral pulses: radial pulses present and posterior tibial pulses present GI Inspection: No distended and No Abdominal panniculus present Palpation (GI): Soft to palpation, nontender, no guarding, not rigid and No hepatosplenomegaly present Percussion: Yes normal to percussion Auscultation: normal bowel sounds Rectal Exam - Female: deferred Skin General skin exam: no rashes or lesions noted, turgor normal, skin not dry, no jaundice, No spider nevi and no striae Rashes: no rashes Nails: normal Neuro General: oriented to person, oriented to place and oriented to time Cranial nerves: Yes Equal, round and reactive pupils present and Yes Normal hearing present Speech: No Abnormal speech present Extrem General: Yes normal to inspection, No clubbing, No cyanosis and No edema Psych Appearance: grossly normal and well kempt Mental Status: mental status grossly normal Speech and movement: Normal speech and movement present Affect: normal affect Attitude: cooperative Thought process: Normal thought process present and not confabulating Thought content: Normal thought content present Insight: Fair insight present (Psych) Judgement: Fair judgement present (Psych) Assessment & Plan Assessment & Plan (1) GERD (gastroesophageal reflux disease): Comment: Controlled with simethicone and Tums Code(s): K21.9 - Gastro-esophageal reflux disease without esophagitis Category: Medical (2) Abdominal bloating: Code(s): R14.0 - Abdominal distension (gaseous) Category: Medical Plan She continues to do well, but has been putting on some weight and having some post prandial bloating. We discuss possible causes and things to look for i.e. types of foods etc. She does feel relief after a BM, and she moves her bowels daily and she does NOT feels she has incomplete evacuation. We agree that if this becomes more of a problem she will return earlier, but in the meantime she should use her simethicone more aggressively and even consider something like BEANO. She also asks about later life weight gain and I do educate her that it becomes more difficult as we age to lose weight because of are decreasing metabolism and certain hormonal changes. We do discuss the role of exercise since she eats well generally avoiding high fat or junk foods and she admits that it is difficult because she has a full-time caregiver for her disabled sister. I totally understand the challenges she faces. ROV 1 year. Medications: Refilled calcium carbonate (Tums E-X) 300 mg PO TID PRN 90 tabs 6RF Indigestion K21.9 - Gastro-esophageal reflux disease without esophagitis simethicone after meals 180 mg PO BID 30 days 60 caps 6RF K21.9 - Gastro-esophageal reflux disease without esophagitis, R14.0 - Abdominal distension (gaseous) Coding Level of Care Code Est Pt Level 3 (45215) Diagnoses GERD (gastroesophageal reflux disease) K21.9 Abdominal bloating R14.0
[2024-10-23 15:15] VITALS: BP 109/53; PULSE 68; O2SAT 97; BMI 25.5
== END 2024-10-23 15:46 | disposition home or self-care (01) ==
LOC: HO.HGI 15:01
PROVIDERS: Visit Provider Nurse Practitioner
DX: K21.9 Gastro-esophageal reflux disease without esophagitis (principal); R14.0 Abdominal distension (gaseous)
CPT/HCPCS: 99213

== ENCOUNTER → 2024-10-23 15:00 | Outpatient (BNVA) | payer OTHER, SELFPAY | PROVIDERS: Visit Provider Nurse Practitioner | DX: K21.9 Gastro-esophageal reflux disease without esophagitis (principal); R14.0 Abdominal distension (gaseous) | CPT/HCPCS: 99212 ==

== ENCOUNTER 2024-11-20 14:54 | Outpatient (REF) | payer OTHER, SELFPAY ==
[2024-11-20 18:43] LABS: Bacterial Vaginosis PCR NEGATIVE (Negative); Candida Group PCR NOT DETECTED (Not Detect); Candida glab krusei PCR NOT DETECTED (Not Detect); Trichomonas vaginalis PCR NOT DETECTED (Not Detect)
[2024-11-20 23:00] LABS: CT PCR NOT DETECTED (Not Detect.); NG PCR NOT DETECTED (Not Detect.)
[2024-11-21 08:27] LABS: Syphilis Screen Nonreactive (Nonreactive)
[2024-11-21 08:32] LABS: HBc Num1 1.04 S/CO (0.00-0.79); HIV AB/AG Nonreactive (Nonreactive); HIV Num 1 0.06 S/CO (0.00-0.99); ~HepC Num1 0.08 S/CO (0.00-0.79); ~Hepatitis C Antibody Nonreactive (Nonreactive)
[2024-11-21 09:42] LABS: HBc Num2 0.04 S/CO; HBc Num3 0.04 S/CO; Hepatitis B Core Antibody Nonreactive (Nonreactive)
== END 2024-11-20 14:55 | disposition home or self-care (01) ==
LOC: HO.LNP 14:54
PROVIDERS: PCP Internal Medicine; Visit Provider Advanced Practice Midwife
DX: Z01.419 Encounter for gynecological examination (general) (routine) without abnormal findings (principal); N89.8 Other specified noninflammatory disorders of vagina; Z20.2 Contact with and (suspected) exposure to infections with a predominantly sexual mode of transmission
CPT/HCPCS: 81515; 86704; 86780; 86803; 87389; 87491; 87591; 99395

== ENCOUNTER 2024-11-20 14:54 | Outpatient (AMB) | payer OTHER, SELFPAY ==
--- NOTE | 2024-11-20 15:03 | MHC.OFFVIS ---
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 Regular monthly menses. Currently is sexually active. Unable to conceive since her last years ago. Has vaginal itching or irritation. STI screening offered; she accepts. She tries to eat healthy and stays active with exercise when possible. Denies family history of breast, ovarian or colon cancer. Last pap smear 2023, negative. [facility] Medical History Breast mass Palpitations Abnormal EKG Right knee pain Shortness of breath Elevated troponin Tachycardia Encounter for well woman exam with routine gynecological exam Physical exam Heavy menstrual bleeding History of painful menstruation Encounter for annual routine gynecological examination First degree burn ASCUS (atypical squamous cells of undetermined significance) on gynecologic Papanicolaou smear complicating , antepartum Adenomyosis Dysmenorrhea Abdominal bloating Chronic fatigue Dyslipidemia Surgical History History of loop electrical excision procedure (LEEP) Family History Father No problems noted. Mother Kidney disease High blood pressure Sister Parkinsons disease Muscular dystrophy Maternal Grandfather Cancer Maternal Aunt Diabetes Maternal Grandmother Kidney disease Social History Household Members: Family Housing: Apartment Alcohol intake: current Alcohol intake frequency: holidays/special occasions only Alcohol type: wine and hard liquor Patient Tobacco Use Status: Never used Tobacco e-Cigarette/Vaping Use: Never Used Second Hand Smoke Exposure: No service: No Current occupational status: employed Current occupation: [employer] P[employer]ER Current occupational exposures/hazards: No Sexual orientation: Straight/Heterosexual Gender identity: Female Cognitive needs: No Hearing needs: No Vision needs: No Female Reproductive History Menstrual Age of Menarche: 13 Date of last menstrual period: 11/09/24 control method: none Total pregnancies: 1 Number of Living Children: 0 Ab spontaneous: 1 Date of last pap smear: 11/14/23 (neg pap and hpv) History of abnormal pap smear: Yes (10/23 ascus +hpv 10/24 neg pap and hpv, Leep 2010) Review of Systems Const All systems reviewed & are unremarkable except as noted in HPI and below Reports as per HPI Eyes Reports no additional complaints ENT Reports no additional complaints Card Reports no additional complaints Resp Reports no additional complaints GI Reports as per HPI and Reports no additional complaints Reports as per HPI Musc Reports no additional complaints Skin/Breast Reports as per HPI Neuro Reports no additional complaints Psych Reports no additional complaints Endo Reports no additional complaints Davonte/Lymph Reports no additional complaints Aller/Immun Reports no additional complaints Physical Exam Vital Signs: Last Vital Signs BP 116/72 11/20/24 15:04 BMI result Body Mass Index 25.0 Const General: cooperative, healthy appearing, no acute distress, well developed and alert Orientation/consciousness: patient oriented x3 HEENT Head: Yes normal to inspection Eyes General: appearance normal, both eyes and all related structures Neck Neck: Yes normal visual inspection Thyroid: Thyroid normal Chest Other: Right breast mass at 10:00 Chest palpation & inspection: normal inspection of the chest and other (no puckering, dimpling, peau de orange, retraction, discharge, masses) Breast/axilla inspection: normal inspection of the breasts Breast/axilla palpation: normal palpation of the breasts Resp Effort & Inspection: normal respiratory effort GI Inspection: Yes normal to inspection Palpation (GI): Soft to palpation Rectal Exam - Female: deferred General: Yes bladder normal to palpation External Female Exam: normal external appearance and normal appearance of the urethra Speculum Exam - Vagina: normal appearance of the vagina, normal palpation and normal vaginal discharge (Heavy thick white) Speculum Exam - Cervix: normal appearance of the cervix and normal palpation Bimanual exam- vagina & uterus: normal bimanual exam, normal palpation, uterine size normal, bladder normal to palpation, normal palpation and non-tender Bimanual Exam- Adnexa, other: no masses Skin General skin exam: no rashes or lesions noted Rashes: no rashes Neuro General: patient oriented x3 Cognition (Neuro): normal cognition Extrem General: Yes normal to inspection Psych Attitude: cooperative Thought process: Normal thought process present Assessment & Plan Assessment & Plan (1) Breast mass: Code(s): N63.0 - Unspecified lump in unspecified breast Category: Medical Qualifiers: Laterality: right Breast mass location: unspecified quadrant Qualified Code(s): N63.10 - Unspecified lump in the right breast, unspecified quadrant Plan: Breast ultrasound and diagnostic mammogram ordered follow up pending results, if any masses are phone biopsy is recommended along with a surgical consult if indicated not all breast lumps are cancer. The patient expressed understanding and agreement with the plan of care. All of her questions and concerns were addressed to the best of my ability. (2) Encounter for well woman exam with routine gynecological exam: Code(s): Z01.419 - Encounter for gynecological examination (general) (routine) without abnormal findings Category: Medical Plan: Discussed: Current recommendations for pap smears per ASCCP guidelines. Breast awareness and periodic breast exams. Maintain a healthy lifestyle including a well balanced diet and routine exercise. Discussed looking at other insurance option plans into call her own insurance to see if covered benefits for infertility services. Patient verbalizes understanding and agrees to the plan of care. She was given opportunity to ask questions and all questions were answered to the best of my ability. RTO in one year for annual mail order clerk examination. This note is constructed using voice recognition software. While every effort has been made to ensure accuracy, health coach errors may have been included. Orders: Orders Hepatitis B Core Antibody Today Z20.2 - Contact with and (suspected) exposure to infections with a predominantly sexual mode of transmission CT NG by PCR Today N89.8 - Other specified noninflammatory disorders of vagina, Z20.2 - Contact with and (suspected) exposure to infections with a predominantly sexual mode of transmission MM tomosynthesis diagnostic BI Today N63.0 - Unspecified lump in unspecified breast, Z12.31 - Encounter for screening mammogram for malignant neoplasm of breast US breast RT limited Today N63.0 - Unspecified lump in unspecified breast HIV Ab/Ag Today Z20.2 - Contact with and (suspected) exposure to infections with a predominantly sexual mode of transmission Hepatitis C Antibody Reflex Today Z20.2 - Contact with and (suspected) exposure to infections with a predominantly sexual mode of transmission Syphilis Screen Today Z20.2 - Contact with and (suspected) exposure to infections with a predominantly sexual mode of transmission Bacterial Vaginosis Panel Today N89.8 - Other specified noninflammatory disorders of vagina, Z20.2 - Contact with and (suspected) exposure to infections with a predominantly sexual mode of transmission Medications: New PNV,calcium 81-wzgz-ejavx acid 27 mg iron- 1 mg ( Vitamins Plus Low Iron) 1 tab PO DAILY 90 tabs 4RF Coding Level of Care Code Est Pt Prev Care 18-39y(64730) Diagnoses Mass of right breast, unspecified quadrant N63.10 Laterality: right Breast mass location: unspecified quadrant Encounter for well woman exam with routine gynecological exam Z01.419
[2024-11-20 15:04] VITALS: BP 116/72; BMI 25.0
== END 2024-11-20 16:04 | disposition home or self-care (01) ==
LOC: HO.HWS 14:54
PROVIDERS: PCP Internal Medicine; Visit Provider Advanced Practice Midwife
DX: Z01.419 Encounter for gynecological examination (general) (routine) without abnormal findings (principal); N63.10 Unspecified lump in the right breast, unspecified quadrant
CPT/HCPCS: 99395; 99459

== ENCOUNTER 2024-11-20 15:48 | Outpatient (REF) | payer OTHER, SELFPAY | END 2024-11-20 15:49 | disposition home or self-care (01) | LOC: HO.LAB 15:48 | PROVIDERS: PCP Internal Medicine; Visit Provider Advanced Practice Midwife | DX: Z13.89 Encounter for screening for other disorder (principal) ==

== ENCOUNTER 2024-12-25 14:17 | Outpatient (AMB) | payer OTHER, SELFPAY ==
--- NOTE | 2024-12-25 14:24 | MHC.PC.OV ---
Vital Signs 12/25/24 14:26 Height 5 ft 6 in Weight 154 lb BMI 24.9 BP 132/74 Blood Pressure Location Lt brachial Position Sitting Intake Visit Reasons: Annual Exam PHQ-9 needed. Intake Note: Patient here for a physical exam Repeater Operator Required: No Accompanied by: Self / Same As Patient Allergies No Known Allergies Allergy (Verified 12/25/24 14:53) Medication List - Last Reconciled 12/25/24 by Michelle Cruz MD calcium carbonate (Tums E-X) 300 mg PO TID PRN metoprolol succinate ER 25 mg PO DAILY PNV,calcium 75-gmth-mmbak acid 27 mg iron- 1 mg ( Vitamins Plus Low Iron) 1 tab PO DAILY simethicone 180 mg PO BID 30 days Tobacco use date assessed: 12/25/24 Dental Screening Dental Screen Date: 12/25/24 Did you have a dental visit in the last 12 months?: No Did you have a dental problem in the last 6 months where you did not have access to dental care?: No Was dental information given to patient?: Patient has dentist HPI HPI Comments History of Present Illness Details The patient is a 39-year-old female presenting for a physical exam and management of chronic conditions. She has a history of atrial fibrillation and is on metoprolol 25 mg for tachycardia, under the care of a electronic sales and service technician. She reports occasional shortness of breath despite medication adherence, with an echocardiogram showing mild mitral valve regurgitation and normal ejection fraction. The patient experiences mild depression with a PHQ-9 score of 8 but is not currently seeking therapy, feeling she is managing well on her own. She has a right breast lump for which she has scheduled a mammogram and ultrasound. The patient reports hair loss and will be referred to dermatology for further evaluation. Her preventative care is up to date with a tetanus and whooping cough vaccination received less than ten years ago and a normal Pap smear with HPV negative result last year. - Tetanus and whooping cough vaccination up to date - Pap smear normal with HPV negative last year [facility] Medical History (Updated 12/26/24 @ 03:50 by Michelle Cruz MD) Physical exam Breast mass Palpitations Abnormal EKG Right knee pain Shortness of breath Elevated troponin Tachycardia Encounter for well woman exam with routine gynecological exam Heavy menstrual bleeding History of painful menstruation Encounter for annual routine gynecological examination First degree burn ASCUS (atypical squamous cells of undetermined significance) on gynecologic Papanicolaou smear complicating , antepartum Adenomyosis Dysmenorrhea Abdominal bloating Chronic fatigue Dyslipidemia Surgical History History of loop electrical excision procedure (LEEP) Family History (Updated 12/25/24 @ 14:59 by Michelle Cruz MD) Father Coronary artery disease Mother Kidney disease High blood pressure Sister Parkinsons disease Muscular dystrophy Maternal Grandfather Cancer Maternal Aunt Diabetes Maternal Grandmother Kidney disease Social History Household Members: Family Housing: Apartment Alcohol intake: current Alcohol intake frequency: holidays/special occasions only Alcohol type: wine and hard liquor Patient Tobacco Use Status: Never used Tobacco e-Cigarette/Vaping Use: Never Used Second Hand Smoke Exposure: No service: No Current occupational status: employed Current occupation: [employer] Current occupational exposures/hazards: No Sexual orientation: Straight/Heterosexual Gender identity: Female Cognitive needs: No Hearing needs: No Vision needs: No Female Reproductive History Menstrual Age of Menarche: 13 Questionnaire PHQ-9 Over the last 2 weeks, how often have you been bothered by any of the following problems? 1. Little interest or pleasure in doing things: several days 2. Feeling down, depressed, or hopeless: several days 3. Trouble falling or staying asleep, or sleeping too much: more than half the days 4. Feeling tired or having little energy: nearly every day 5. Poor appetite or overeating: not at all 6. Feeling bad about yourself - or that you are a failure or have let yourself or your family down: not at all 7. Trouble concentrating on things, such as reading the newspaper or watching television: several days 8. Moving or speaking so slowly that other people could have noticed. Or the opposite - being so fidgety or restless that you have been moving around a lot more than usual: not at all 9. Thoughts that you would be better off or of hurting yourself in some way: not at all Total score: 8 Depression Screening Interpretation: Positive Depression Screening Follow-up: Existing condition and Follow-up Visit Requested Depression Screening Done: Yes 80404 - PHQ-9 Billing: Yes Source: Developed by Drs. Charly Foster, Yasmeen Joshua, Mannie Renteria and colleagues, with an educational ana maría from [employer]. Thrive Questionnaire Date Thrive assessed: 12/25/24 I am a: Patient What is your living situation today?: I have a steady place to live Within the past 12 months, did the food you bought not last and you didn't have the money to get more?: Sometimes True Within the past 12 months, did you worry whether your food would run out before you got money to buy more?: Never true Do you have trouble paying for medicines?: No Do you have trouble getting transportation to medical appointments?: No Do you have trouble paying your heating and electricity bill?: No Do you have trouble taking care of your child, family member or friend?: No Do you have trouble with day-to-day activities such as bathing, preparing meals, shopping, managing finances, etc.?: No Are you currently unemployed and looking for a job?: No Are you interested in more education?: No Please select the resources that you would like help with: Care for elder or disabled Currently or been in a relationship where the following occur: No concerns reported THRIVE Score: 1 AUDIT C Alcohol Use Questionnaire (AUDIT-C) 1. How often do you have a drink containing alcohol?: Monthly or less 2. How many drinks containing alcohol do you have on a typical day when you are drinking?: 1 or 2 3. How often do you have six or more drinks on one occasion?: Never Total Score: 1 Score Reviewed/Action Taken: No SHARON-7 AMB Questionnaire SHARON-7 Date SHARON - 7 assessed: 12/25/24 Feeling nervous, anxious, or on edge: 1 = Several days Not being able to stop or control worryin = Not at all Worrying too much about different things: 0 = Not at all Trouble relaxin = More than half the days Being so restless that it is hard to sit still: 0 = Not at all Becoming easily annoyed or irritable: 0 = Not at all Feeling afraid as if something awful might happen: 0 = Not at all Total SHARON-7 score (0-4 normal; 5-9 mild; 10-14 moderate; 15-21 severe): 3 Source: Developed by Drs. Charly Foster, Yasmeen Joshua, Mannie Renteria and colleagues, with an educational ana maría from [employer]. SHARON-7 Assessment Billing SHARON-7 Assessment Tool: SHARON-7 Assessment 01586 Review of Systems Const All systems reviewed & are unremarkable except as noted in HPI and below Card Denies chest pain at rest, Denies chest pain with activity, Denies edema, Denies irregular heart rhythm, Denies claudication, Denies dyspnea, Denies dyspnea on exertion, Denies orthopnea, Denies paroxysmal nocturnal dyspnea and Denies slow heart rate Resp Denies cough, Denies dyspnea and Denies dyspnea on exertion GI Denies abdominal pain, Denies change in bowel habits, Denies excessive flatus, Denies nausea and Denies vomiting Denies urinary incontinence, Denies urinary hesitancy and Denies urinary urgency Musc Denies abnormal gait, Denies atrophy, Denies deformity and Denies limited range of motion Skin/Breast Denies bleeding lesions, Denies changing lesions and Denies rash Neuro Denies abnormal gait, Denies behavioral changes, Denies confusion and Denies lack of coordination Psych Denies behavioral changes and Denies confusion Physical exam (Primary Care) Vital Signs: Last Vital Signs BP 132/74 12/25/24 14:26 BMI result Body Mass Index 24.9 Tobacco/Smoking Status: Tobacco use Status Tobacco use date assessed 12/25/24 12/25/24 14:30 Patient Tobacco Use Status Never used Tobacco 12/25/24 14:30 e-Cigarette/Vaping Use Never Used 12/25/24 14:30 PHQ-9: PHQ-9 Score PHQ-9: Total score 8 12/25/24 15:00 Depression Screening Interpretation: Positive Depression Screening Follow-up: Existing condition and Follow-up Visit Requested Thrive Assessment: Date of Thrive Assessment Date Thrive assessed 12/25/24 12/25/24 14:30 Currently or been in a relationship where the following occur: No concerns reported Const General: No confusion Orientation/consciousness: patient oriented x3 and No confusion HENMT Head: Yes normal to inspection, Yes normocephalic and Yes atraumatic Ears: external ears normal Eyes General: appearance normal, both eyes and all related structures Eyelids: Yes eyelids normal Conjunctivae: conjunctivae normal Neck Neck: Yes normal visual inspection and Yes supple Resp Effort & Inspection: normal respiratory effort Auscultation: clear to auscultation bilaterally Cardio Jugular venous distension: no JVD Rate: regular rate Rhythm: regular rhythm Heart sounds: S1 normal heart sound present and S2 normal heart sound present GI Inspection: Yes normal to inspection Palpation (GI): Soft to palpation and nontender Auscultation: normal bowel sounds Skin General skin exam: no rashes or lesions noted Neuro General: patient oriented x3, no focal motor deficits and No confusion Extrem General: Yes full ROM Psych Appearance: grossly normal Coding Level of Care Code Est Pt Level 3 (86410) Est Pt Prev Care 18-39y(41523) Diagnoses Physical exam Z00.00 Atrial fibrillation I48.91 Mild recurrent major depression F33.0 Hair loss L65.9 Additional Codes SHARON-7 Assessment Billing - SHARON-7 Assessment Tool: SHARON-7 Assessment 20465 ([id number]) PHQ-9 - 09025 - PHQ-9 Billing: Yes ([id number]) Time Spent (min) 32 Assessment & Plan Assessment & Plan (1) Physical exam: Code(s): Z00.00 - Encounter for general adult medical examination without abnormal findings Category: Medical (2) Atrial fibrillation: Code(s): I48.91 - Unspecified atrial fibrillation Category: Medical (3) Mild recurrent major depression: Code(s): F33.0 - Major depressive disorder, recurrent, mild Category: Medical (4) Hair loss: Code(s): L65.9 - Nonscarring hair loss, unspecified Category: Medical Plan The patient will continue with metoprolol 25 mg for atrial fibrillation and is advised to monitor for any worsening symptoms such as increased shortness of breath or palpitations. She is scheduled for a mammogram and ultrasound to evaluate the right breast lump, and results will guide further management. A referral to dermatology is planned to address hair loss, and thyroid function will be checked to rule out any underlying causes. Preventative care measures are up to date, with a focus on maintaining regular screenings and vaccinations. Patient was informed and verbally consented to the use of an ambient scribe for clinic note documentation during this visit. Orders: Orders Lipid Panel 12/25/24 Z00. - Encounter for general adult medical examination without abnormal findings Comprehensive Bulan. Panel Fast 12/25/24 Z00. - Encounter for general adult medical examination without abnormal findings Thyroid Stimulating Hormone 12/25/24 L65.9 - Nonscarring hair loss, unspecified Referrals Dermatology Referral L65.9 - Nonscarring hair loss, unspecified
[2024-12-25 14:26] VITALS: BP 132/74; BMI 24.9
== END 2024-12-25 15:10 | disposition home or self-care (01) ==
LOC: HO.HMCH 14:18
PROVIDERS: PCP Internal Medicine; Visit Provider Internal Medicine
DX: Z00.00 Encounter for general adult medical examination without abnormal findings (principal); I48.91 Unspecified atrial fibrillation; F33.0 Major depressive disorder, recurrent, mild; L65.9 Nonscarring hair loss, unspecified

== ENCOUNTER → 2024-12-25 14:17 | Outpatient (BNVA) | payer OTHER, SELFPAY | PROVIDERS: PCP Internal Medicine; Visit Provider Internal Medicine | DX: Z00.00 Encounter for general adult medical examination without abnormal findings (principal); I48.91 Unspecified atrial fibrillation; N63.10 Unspecified lump in the right breast, unspecified quadrant; F33.0 Major depressive disorder, recurrent, mild; L65.9 Nonscarring hair loss, unspecified | CPT/HCPCS: 96127; 99212; 99395 ==

== ENCOUNTER 2024-12-26 13:26 | Outpatient (REF) | payer OTHER, SELFPAY ==
--- NOTE | ~2024-12-26 | US_ITS ---
EXAMINATION: MM DIAGNOSTIC DIGITAL BREAST TOMOSYNTHESIS, BILATERAL Limited right breast ultrasound. CLINICAL INFORMATION: 39-year-old female baseline mammogram palpable right breast lump upper outer quadrant. COMPARISON: Mammography: Comparison is made with relevant prior exams. TECHNIQUE: Digital breast mammography with tomosynthesis is performed in both the craniocaudal and mediolateral oblique views along with computer-aided detection (CAD). FINDINGS: There are scattered areas of fibroglandular density (ACR BI-RADS breast composition Category b). BB palpable marker in the upper outer quadrant with an underlying oval mass. Otherwise no suspicious masses calcifications or other abnormal findings. Targeted color Doppler ultrasound scanning in the right breast palpable lump 10:00 12 cm from nipple demonstrates adjacent simple cysts with a thin intervening avascular septation measuring 16 x 16 x 15 mm correlating with the mammographic and palpable lump. Results are provided to the patient at time of visit by the technologist. US/US breast RT limited mamm only IMPRESSION: Left: Negative. Right: Adjacent simple to minimally complicated cyst with a thin intervening septation correlating with patient's palpable lump at 10:00 12 cm from the nipple. Benign. ASSESSMENT: BI-RADS BI-RADS 2 - Benign Findings RECOMMENDATION: 1 year F/U This patient's information was entered into a reminder system with a target due date for their next mammogram. Electronically signed by: Lidia Coreas DO 12/26/2024 02:06 PM EDT
== END 2024-12-26 13:27 | disposition home or self-care (01) ==
LOC: HO.MAMMO 13:26
PROVIDERS: PCP Internal Medicine; Visit Provider Advanced Practice Midwife
DX: I48.0 Paroxysmal atrial fibrillation (principal); R00.2 Palpitations; N63.0 Unspecified lump in unspecified breast; I44.7 Left bundle-branch block, unspecified; Z12.31 Encounter for screening mammogram for malignant neoplasm of breast; Z79.899 Other long term (current) drug therapy
CPT/HCPCS: 76642; 77062; 77066; 99212

== ENCOUNTER → 2024-12-26 13:30 | Outpatient (BNV) | payer OTHER, SELFPAY | PROVIDERS: PCP Internal Medicine; Visit Provider Internal Medicine | DX: N63.11 Unspecified lump in the right breast, upper outer quadrant (principal) | CPT/HCPCS: 76642; 77062; 77066 ==

== ENCOUNTER 2024-12-26 14:26 | Outpatient (AMB) | payer OTHER, SELFPAY ==
[2024-12-26 14:57] VITALS: BP 118/72; PULSE 61; BMI 24.9
--- NOTE | 2024-12-26 14:57 | A.OFFVIS_ITS ---
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 She now presents here for follow-up. Today she reports that her last documented episode of AFib lasting a few minutes was October 2024. She uses a smart watch. She gets brief palpitations otherwise lasting less than a minute. Overall she says her symptoms are much improved with the use of metoprolol. We opted to continue medical management and not undergo ablation at this time. 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 When she has longer episodes of AFib she will notice some shortness of breath. No recent chest discomfort at rest or with activity. No lightheadedness, presyncope, syncope, falls. Compliant with meds. [facility] Medical History Physical exam Breast mass Palpitations Abnormal EKG Right knee pain Shortness of breath Elevated troponin Tachycardia Encounter for well woman exam with routine gynecological exam Heavy menstrual bleeding History of painful menstruation Encounter for annual routine gynecological examination First degree burn ASCUS (atypical squamous cells of undetermined significance) on gynecologic Papanicolaou smear complicating , antepartum Adenomyosis Dysmenorrhea Abdominal bloating Chronic fatigue Dyslipidemia Surgical History History of loop electrical excision procedure (LEEP) Family History Father Coronary artery disease Mother Kidney disease High blood pressure Sister Parkinsons disease Muscular dystrophy Maternal Grandfather Cancer Maternal Aunt Diabetes Maternal Grandmother Kidney disease Social History Household Members: Family Housing: Apartment Alcohol intake: current Alcohol intake frequency: holidays/special occasions only Alcohol type: wine and hard liquor Patient Tobacco Use Status: Never used Tobacco e-Cigarette/Vaping Use: Never Used Second Hand Smoke Exposure: No service: No Current occupational status: employed Current occupation: [employer] Current occupational exposures/hazards: No Sexual orientation: Straight/Heterosexual Gender identity: Female Cognitive needs: No Hearing needs: No Vision needs: No Female Reproductive History Menstrual Age of Menarche: 13 Review of Systems Const All systems reviewed & are unremarkable except as noted in HPI and below ENT Denies dizziness Card Details: occasional heart palpitations Denies chest pain, Denies chest pain at rest, Denies chest pain with activity, Denies rapid heart rate, Denies pedal edema, Denies edema, Denies leg edema, Denies lightheadedness, Denies palpitations, Denies dyspnea, Denies dyspnea on exertion and Denies orthopnea Resp Denies cough, Denies dyspnea and Denies dyspnea on exertion GI Denies hematochezia and Denies change in stool character Musc Denies abnormal gait, Denies limited range of motion, Denies muscle cramps, Denies muscle weakness, Denies numbness, Denies radiating pain into limb, Denies stiffness and Denies tingling Neuro Denies abnormal gait, Denies dizziness, Denies numbness and Denies tingling Endo Denies palpitations Physical Exam Vital Signs: Last Vital Signs Pulse 61 12/26/24 14:57 BP 118/72 12/26/24 14:57 BMI result Body Mass Index 24.9 Const General: cooperative, healthy appearing, comfortable and no acute distress Orientation/consciousness: patient oriented x3 Neck Neck: Yes normal visual inspection Resp Effort & Inspection: normal respiratory effort Auscultation: clear to auscultation bilaterally, no rales, no rhonchi and no wheezes Cardio Rate: regular rate Rhythm: regular rhythm Heart sounds: S1 normal heart sound present, S2 normal heart sound present, no gallops, no murmurs and no rubs Neuro General: patient oriented x3 Extrem General: Yes normal to inspection, No no pedal edema and No calf tenderness Psych Appearance: grossly normal Mental Status: mental status grossly normal Speech and movement: Normal speech and movement present Assessment & Plan Assessment & Plan (1) Atrial fibrillation: Code(s): I48.91 - Unspecified atrial fibrillation Category: Medical Plan: Newer finding of paroxysmal atrial fibrillation as seen on cardiac event monitor that was applied for palpitations. She was put on metoprolol XL 25 mg daily with much improvement in her symptoms. Echocardiogram 07/04/2024 showed EF 59%, mild mitral regurgitation, both atria normal size. Chads Vasc score of 1, female. Anticoagulation currently not indicated. She did see Dr. Yarbrough to discuss ablation. Since she had limited symptoms she opted to continue med management. She will notify me if she has increasing heart palpitations and is agreeable to consider ablation in the future. Continue metoprolol. Can consider adding flecainide if her symptoms increase. Informed she may take an additional metoprolol if she was to have prolonged AFib. Emergency care if needed. Cardiology follow-up in 6 months, sooner if needed. Will check Holter prior to next visit. (2) Palpitations: Code(s): R00.2 - Palpitations Category: Medical Plan: As above (3) Left bundle branch block (LBBB): Comment: rate related - seen on stress test Code(s): I44.7 - Left bundle-branch block, unspecified Category: Medical Plan: Previously noted to have a rate related left bundle branch block. EKG done last previously did show left bundle branch block. CTA of the coronary arteries done on 12/31/2021 showing no evidence of hemodynamically significant coronary artery disease. Last echo shows normal EF. Plan Time spent on chart review, documentation, interview and assessment Orders: Orders ECG 3 day holter monitor 06/09/25 I48.91 - Unspecified atrial fibrillation Coding Level of Care Code Est Pt Level 4 (01045) Complex EM visit Add On G2211 Diagnoses Atrial fibrillation I48.91 Palpitations R00.2 Left bundle branch block (LBBB) I44.7 Time Spent (min) 28
== END 2024-12-26 15:23 | disposition home or self-care (01) ==
LOC: HO.HCS 14:27
PROVIDERS: PCP Internal Medicine; Visit Provider Nurse Practitioner Family
DX: I48.91 Unspecified atrial fibrillation (principal); R00.2 Palpitations; I44.7 Left bundle-branch block, unspecified
CPT/HCPCS: 99214; G2211

== ENCOUNTER 2025-04-02 10:03 | Outpatient (AMB) | payer OTHER, SELFPAY ==
[2025-04-02 10:07] VITALS: BP 104/68; BMI 25.5
--- NOTE | 2025-04-02 10:07 | MHC.OFFVIS ---
Vital Signs 04/02/25 10:07 Height 5 ft 6 in Weight 158 lb BMI 25.5 BP 104/68 Intake Visit Reasons: Breast U/S follow up Neon Molder: Neon Molder Present (Cheli) Allergies No Known Allergies Allergy (Verified 04/02/25 10:10) Is last menstrual period known: Yes Last menstrual period: 03/18/25 HPI Comments Details: Patient is here today for a follow up breast ultrasound and mammogram, history of right breast cyst. Cyst is usually tender around her menstrual cycle and palpable by patient at times throughout her cycle. Discomfort of the cyst is not worsening or persistent. No other breast changes or concerns today. [facility] Medical History Physical exam Breast mass Palpitations Abnormal EKG Right knee pain Shortness of breath Elevated troponin Tachycardia Encounter for well woman exam with routine gynecological exam Heavy menstrual bleeding History of painful menstruation Encounter for annual routine gynecological examination First degree burn ASCUS (atypical squamous cells of undetermined significance) on gynecologic Papanicolaou smear complicating , antepartum Adenomyosis Dysmenorrhea Abdominal bloating Chronic fatigue Dyslipidemia Surgical History History of loop electrical excision procedure (LEEP) Family History Father Coronary artery disease Mother Kidney disease High blood pressure Sister Parkinsons disease Muscular dystrophy Maternal Grandfather Cancer Maternal Aunt Diabetes Maternal Grandmother Kidney disease Social History Household Members: Family Housing: Apartment Alcohol intake: current Alcohol intake frequency: holidays/special occasions only Alcohol type: wine and hard liquor Patient Tobacco Use Status: Never used Tobacco e-Cigarette/Vaping Use: Never Used Second Hand Smoke Exposure: No service: No Current occupational status: employed 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 Current occupational exposures/hazards: No Sexual orientation: Straight/Heterosexual Gender identity: Female Cognitive needs: No Hearing needs: No Vision needs: No Female Reproductive History Menstrual Age of Menarche: 13 Date of last menstrual period: 03/18/25 Review of Systems Const All systems reviewed & are unremarkable except as noted in HPI and below Reports no additional complaints Skin/Breast Reports system reviewed and no additional complaints, except as documented and Reports as per HPI Physical Exam Vital Signs: Last Vital Signs BP 104/68 04/02/25 10:07 BMI result Body Mass Index 25.5 Const General: cooperative, healthy appearing and no acute distress Chest Other: Slightly palpable right breast mass-cyst at and o'clock position, slightly tender with deep palpation Breast/axilla inspection: normal inspection of the breasts and normal inspection of the axillae Breast/axilla palpation: normal palpation of the breasts Skin General skin exam: no rashes or lesions noted Results Reviewed Results Reviewed: [facility] [address] [place] [address] Ultrasound Report Signed Patient: Nessa Ricks MR#: [id number] : 1985 Acct:[id number] Age/Sex: 39 / F ADM Date: 12/26/24 Loc: MAMMO Attending Dr: Floridalma Mansfield CNM Ordering Physician: Floridalma Mansfield CNM Date of Service: 12/26/24 Procedure(s): US breast RT limited mamm only Accession Number(s): [id number] cc: Floridalma Mansfield CNM; Michelle Tovar MD~ EXAMINATION: MM DIAGNOSTIC DIGITAL BREAST TOMOSYNTHESIS, BILATERAL Limited right breast ultrasound. CLINICAL INFORMATION: 39-year-old female baseline mammogram palpable right breast lump upper outer quadrant. COMPARISON: Mammography: Comparison is made with relevant prior exams. TECHNIQUE: Digital breast mammography with tomosynthesis is performed in both the craniocaudal and mediolateral oblique views along with computer-aided detection (CAD). FINDINGS: There are scattered areas of fibroglandular density (ACR BI-RADS breast composition Category b). BB palpable marker in the upper outer quadrant with an underlying oval mass. Otherwise no suspicious masses calcifications or other abnormal findings. Targeted color Doppler ultrasound scanning in the right breast palpable lump 10:00 12 cm from nipple demonstrates adjacent simple cysts with a thin intervening avascular septation measuring 16 x 16 x 15 mm correlating with the mammographic and palpable lump. Results are provided to the patient at time of visit by the technologist. US/US breast RT limited mamm only IMPRESSION: Left: Negative. Right: Adjacent simple to minimally complicated cyst with a thin intervening septation correlating with patient's palpable lump at 10:00 12 cm from the nipple. Benign. ASSESSMENT: BI-RADS BI-RADS 2 - Benign Findings RECOMMENDATION: 1 year F/U This patient's information was entered into a reminder system with a target due date for their next mammogram. 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 Advised to call if there is any increased or persistent pain with the breast an area of cyst. Self-breast exam if indicated. Follow up for annual exam November 2025, or sooner if needed for recheck. Follow up breast imaging in December of 2025. The patient expressed understanding and agreement with the plan of care. All of her questions and concerns were addressed to the best of my ability. This note is constructed using voice recognition software. While every effort has been made to ensure accuracy, booking police officer errors may have been included. Coding Level of Care Code Est Pt Level 3 (08898) Diagnoses Cyst of right breast N60.01
== END 2025-04-02 10:39 | disposition home or self-care (01) ==
LOC: HO.HWS 10:05
PROVIDERS: PCP Internal Medicine; Visit Provider Advanced Practice Midwife
DX: N60.01 Solitary cyst of right breast (principal)
CPT/HCPCS: 99213

== ENCOUNTER → 2025-04-02 10:03 | Outpatient (BNVA) | payer OTHER, SELFPAY | PROVIDERS: PCP Internal Medicine; Visit Provider Advanced Practice Midwife | DX: N60.01 Solitary cyst of right breast (principal) | CPT/HCPCS: 99212 ==